=== PATIENT | male | born 1945 | race Caucasian/White ===

== ENCOUNTER 2018-01-04 08:36 | Inpatient (IN) | payer OTHER, MEDICARE ==
[~2018-01-04] VITALS: Ht 180.3 cm; Wt 104.3 kg
[~2018-01-04 08:36] MED LIST: AMLO10 PO; Ambien10 MG PO; BUPR150ERA PO; CALCA500CH PO; DIAZ10 PO; Depakene250 MG PO; ESOM20 PO; FISH1000 PO; GABA300 PO; HYDACE10B PO; HYDPAM50 PO; IMIP25 PO; INS70/30PN; INSULANPEN SC; KETO15TC TOP; LISI20 PO; NASAL SPRAY30 ML; OLAN10 PO; RAME8 PO; TAMS.4ER PO; [UNRECOGNIZED DRUG - OTHER] INH
[2018-01-04 09:21] LABS: BASOPHILS ABSOLUTE AUTO 0.02 K/mm3 (0.00-0.23); BASOPHILS PERCENT AUTO 0 % (0-2); EOSINOPHILS ABSOLUTE AUTO 0.14 K/mm3 (0.00-0.68); EOSINOPHILS PERCENT AUTO 2 % (0-6); Hemoglobin 14.1 g/dL (13.5-17.5); IMMATURE GRAN ABSOLUTE AUTO 0.03 K/mm3 (0.00-0.10); IMMATURE GRAN PERCENT AUTO 0 % (0-1); LYMPHOCYTES ABSOLUTE AUTO 1.38 K/mm3 (0.84-5.20); LYMPHOCYTES PERCENT AUTO 18 % (21-46); MONOCYTES PERCENT AUTO 12 % (4-13); Mean Corpuscular HGB Conc 34.4 g/dL (31.5-36.5); Mean Corpuscular Volume 90 fL (80-100); Mean Platelet Volume 10.4 fL (9.1-12.4); NEUTROPHILS ABSOLUTE AUTO 5.11 K/mm3 (1.96-9.15); NEUTROPHILS PERCENT AUTO 67 % (41-73); Platelet Count 232 K/mm3 (150-400); RDW Coefficient Variation 12.8 % (11.7-14.2); RDW Standard Deviation 42.6 fL (35.1-46.3); Red Blood Cell Count 4.55 M/mm3 (4.30-5.90); White Blood Cell Count 7.58 K/mm3 (4.00-11.30)
[2018-01-04 09:36] LABS: International Normalized Ratio 1.02; Prothrombin Time Results 10.5 Sec (9.7-11.5)
[2018-01-04 09:38] LABS: Alanine Aminotransfer (ALT/SGP 20 U/L (12-78); Albumin, Blood 4.1 g/dL (3.4-5.0); Alk Phos 95 U/L (50-136); Anion Gap 7 mmol/L (6-16); Aspartate Aminotrans (AST/SGOT 21 U/L (12-37); Bilirubin, Total 0.2 mg/dL (0.1-1.0); Blood Urea Nitrogen 21 mg/dL (8-24); Bun/Creatinine Ratio 19.3 (12.0-20.0); CO2, Blood 24 mmol/L (21-32); Calcium, Blood 8.8 mg/dL (8.5-10.1); Chloride, Blood 101 mmol/L (98-108); Creatinine, Blood 1.09 mg/dL (0.60-1.20); Globulin, Blood 4.1 g/dL (2.2-4.0); Glomerular Filtration Rate >60 (60-); Glucose, Blood 208 mg/dL (70-99); Potassium, Blood 3.9 mmol/L (3.5-5.5); Sodium, Blood 132 mmol/L (136-145); Total Protein, Blood 8.2 g/dL (6.4-8.2)
[2018-01-04 11:51] LABS: Source, Urine Clean Catch
[2018-01-04 12:00] LABS: Bilirubin, Urine Neg (Neg); Blood, Urine Neg (Neg); Glucose Qualitative, Urine Neg (Neg); Ketones, Urine Neg (Neg); Leukocyte Esterase, Urine Neg (Neg); Nitrite, Urine Neg (Neg); Protein, Urine Neg (Neg); Specific Gravity, Urine 1.005 (1.003-1.022); Urobilinogen, Urine NORM (Normal)
[2018-01-04 12:10] LABS: Appearance, Urine Clear (Clear); Color, Urine Pale Yellow (P-Yellow)
[2018-01-06 05:36] LABS: Bun/Creatinine Ratio 21.1 (12.0-20.0); Calcium, Blood 9.2 mg/dL (8.5-10.1); Creatinine, Blood 1.28 mg/dL (0.60-1.20); Magnesium, Blood 2.2 mg/dL (1.6-2.4); Potassium, Blood 3.8 mmol/L (3.5-5.5)
[2018-01-06] MEDS ORDERED: ASPI81CH PO (12:08)
[2018-01-06] MEDS ORDERED: CLOP75 PO (12:08)
[2018-01-06] MEDS ORDERED: HUMALOG KW200 UNIT/1 SC (12:10)
[2018-01-06] MEDS ORDERED: METO50ER PO (12:11)
== END 2018-01-06 12:29 | disposition home or self-care (01) | DRG 65 ==
LOC: ER 08:36 → MEDS 10:17
PROVIDERS: Emergency Medicine; Internal Medicine
DX: I63.9 Cerebral infarction, unspecified (principal); N17.9 Acute kidney failure, unspecified; E22.2 Syndrome of inappropriate secretion of antidiuretic hormone; I10 Essential (primary) hypertension; R29.810 Facial weakness; F41.9 Anxiety disorder, unspecified; G47.9 Sleep disorder, unspecified; R25.2 Cramp and spasm; E11.40 Type 2 diabetes mellitus with diabetic neuropathy, unspecified; F43.10 Post-traumatic stress disorder, unspecified; N40.0 Benign prostatic hyperplasia without lower urinary tract symptoms; E66.9 Obesity, unspecified; J44.9 Chronic obstructive pulmonary disease, unspecified; Z68.32 Body mass index [BMI] 32.0-32.9, adult
CPT/HCPCS: 36415; 70450; 71045; 80048; 80053; 81003; 82947; 83735; 85025; 85610; 85730; 92610; 93005; 93010; 93880; 97116; 97162; 97530; 99285-25; G8978; G8979; G8996; G8997; G8998; J1650; J2405

== ENCOUNTER 2019-04-28 10:37 | Inpatient (IN) | payer OTHER, MEDICARE ==
[~2019-04-28] VITALS: Ht 180.3 cm; Wt 106.3 kg
[~2019-04-28 10:37] MED LIST changes: +Aspirin EC81 MG PO; +CLOP75 PO; +HUMALOG KW200 UNIT/1 SC; +METO50ER PO
[2019-04-28 11:00] LABS: BASOPHILS ABSOLUTE AUTO 0.04 K/mm3 (0.00-0.23); BASOPHILS PERCENT AUTO 0 % (0-2); EOSINOPHILS ABSOLUTE AUTO 0.01 K/mm3 (0.00-0.68); EOSINOPHILS PERCENT AUTO 0 % (0-6); Hematocrit 43.8 % (37.0-53.0); Hemoglobin 14.3 g/dL (13.5-17.5); IMMATURE GRAN ABSOLUTE AUTO 0.07 K/mm3 (0.00-0.10); IMMATURE GRAN PERCENT AUTO 1 % (0-1); LYMPHOCYTES PERCENT AUTO 8 % (21-46); MONOCYTES ABSOLUTE AUTO 0.64 K/mm3 (0.16-1.47); MONOCYTES PERCENT AUTO 5 % (4-13); Mean Corpuscular HGB 29.9 pg (26.0-34.0); Mean Corpuscular HGB Conc 32.6 g/dL (31.5-36.5); Mean Corpuscular Volume 92 fL (80-100); Mean Platelet Volume 10.1 fL (9.1-12.4); NEUTROPHILS ABSOLUTE AUTO 10.23 K/mm3 (1.96-9.15); NEUTROPHILS PERCENT AUTO 86 % (41-73); Platelet Count 266 K/mm3 (150-400); RDW Coefficient Variation 14.6 % (11.7-14.2); RDW Standard Deviation 49.1 fL (35.1-46.3); Red Blood Cell Count 4.78 M/mm3 (4.30-5.90); White Blood Cell Count 11.89 K/mm3 (4.00-11.30)
[2019-04-28 11:20] LABS: Alanine Aminotransfer (ALT/SGP 18 U/L (12-78); Alk Phos 91 U/L (50-136); Anion Gap 7 mmol/L (6-16); Aspartate Aminotrans (AST/SGOT 20 U/L (12-37); Bilirubin, Total 0.2 mg/dL (0.1-1.0); Blood Urea Nitrogen 23 mg/dL (8-24); Bun/Creatinine Ratio 25.8 (12.0-20.0); CO2, Blood 24 mmol/L (21-32); Calcium, Blood 9.2 mg/dL (8.5-10.1); Chloride, Blood 104 mmol/L (98-108); Creatinine, Blood 0.89 mg/dL (0.60-1.20); Glomerular Filtration Rate >60 (60-); Glucose, Blood 216 mg/dL (70-99); Potassium, Blood 4.2 mmol/L (3.5-5.5); Sodium, Blood 135 mmol/L (136-145); Troponin I 0.055 ng/mL (0.000-0.040)
[2019-04-28 11:41] LABS: International Normalized Ratio 0.98; Prothrombin Time Results 10.4 Sec (9.7-11.5)
[2019-04-28 12:59] LABS: Source, Urine Clean Catch
[2019-04-28 13:07] LABS: Bilirubin, Urine Neg (Neg); Blood, Urine Neg (Neg); Glucose Qualitative, Urine 4+ (Neg); Ketones, Urine 1+ (Neg); Leukocyte Esterase, Urine Neg (Neg); Nitrite, Urine Neg (Neg); Protein, Urine 2+ (Neg); Urobilinogen, Urine NORM (Normal)
[2019-04-28 13:13] LABS: Appearance, Urine Clear (Clear); Color, Urine Yellow (P-Yellow)
[2019-04-28 13:15] LABS: Bacteria Few /hpf; Red Blood Cells, Urine 0-2 /hpf (0-2); Squamous Epithelial Cells Not Seen /hpf (Few); White Blood Cells, Urine Not Seen /hpf (0-5)
[2019-04-28] MEDS ORDERED: Vitamin D2000 UNIT PO (15:20)
[2019-04-28] MEDS ORDERED: HYDPAM50 PO (15:20)
[2019-04-28] MEDS ORDERED: Bentyl20 MG PO ×2 (15:22→15:23)
[2019-04-28] MEDS ORDERED: GABA400 PO ×2 (15:22)
[2019-04-28] MEDS ORDERED: Nortriptyline H10 MG PO (15:25)
[2019-04-28] MEDS ORDERED: ZOLP5 PO (15:25)
[2019-04-28] MEDS ORDERED: ONDA4 PO (15:26)
[2019-04-28] MEDS ORDERED: Metoclopramide H5 MG PO (15:28)
[2019-04-28] MEDS ORDERED: RISP.5 PO (15:29)
[2019-04-28] MEDS ORDERED: CHLO25B PO (15:29)
[2019-04-28] MEDS ORDERED: Buspirone HCl15 MG PO (15:30)
[2019-04-28] MEDS ORDERED: DESI25 PO (15:31)
[2019-04-28] MEDS ORDERED: RAME8 PO (15:31)
[2019-04-28 16:53] LABS: CHOL/HDL RATIO 4.6; Cholesterol 182 mg/dL (50-200); HDL Cholesterol 40 mg/dL (>39); LDL/HDL RATIO 3.2; Low Density Lipoprotein Chol 127 mg/dL (0-110); Triglycerides 74 mg/dL (30-160); Troponin I 0.246 ng/mL (0.000-0.040); Very Low Density Lipoprot Chol 14 mg/dL (6-32)
--- NOTE | 2019-04-28 19:30 | NUR ---
ASSUMED CARE PT CARE ASSUMED AT APPROXIMATELY 1900. PT ANSWERS ALL ORIENTATION QUESTIONS APPROPRIATELY, BUT IS UNABLE TO TO ANSWER QUESTIONS ACCURATELY ABOUT HIS MEDICAL HISTORY; SUCH ALLERGIES AND CURRENT MEDICATIONS. PT IS ONLY ABLE TO REPORT A FEW OF HIS CURRENT MEDS AND IS UNABLE TO STATE WHEN HE TOOK THEM LAST. PT IS BECOMING IRRITABLE FOR STAFF ATTEMPTING TO CLARIFY AND SOLIDIFY ANSWERS, IT IS APPARENT THAT PT IS BECOMING FRUSTRATED AT NOT BEING ABLE TO ANSWER QUESTIONS SUFFICIENTLY. LUNG SOUNDS CLEAR IN UPPER LOBES, DIMINISHED BASES. PT IS CURRENTLY VERY NAUSEOUS AND HAS ALREADY HAD 300 ML EMESIS OUT. MEDICATED WITH PO REGLAN, WILL MEDICATE WITHIV ZOFRAN. PT REPORTS "EVERYTIME I MOVE MY HEAD, EVERYTHING GETS BLURRY AND I GET NAUSEOUS", ALSO DESCRIBES THIS HAS BEEN HAPPENING OVER THE LAST "SEVERAL WEEKS ON AND OFF". PT CURRENTLY DENIES CP OR DYSPNEA. REPORTS SOME HEADACHE PAIN. WILL ATTEMPT TO CONTROL NAUSEA AND CONTINUE ASSESSMENT. PT ORIENTED TO ROOM AND CALL LIGHT SYSTEM, ENCOURAGED TO CALL FOR ASSISTANCE WITH NEEDS. BED IN LOW POSITION, BED ALARM SET FOR SAFETY.
--- NOTE | 2019-04-29 06:39 | NUR ---
SHIFT SUMMARY PT HAS REMAINED AOX4 THROUHGOUT MUCH OF THE SHIFT, FORGETFUL AT TIMES, BUT REORIENTS EASILY. VSS. SEMI-COOPERATIVE WITH CARE. PT IS IRRITABLE THIS AM BECAUSE OF NPO STATUS AND FRUSTRATED THAT THE EXACT TIME OF HIS TEST IS NOT KNOWN. PT EDUCATED MULTIPLE TIMES ON REASON FOR NPO WELL EXPLAINED PROCESSES FOR PROCEDURES AND HOSPITAL STAY. PT CONTINUES TO STATE THAT "HE WANTS TO GO HOME AND THAT HE WILL BE FINE WITH THE DIZZINESS AND NAUSEA IF HE KEEPS HIS EYES CLOSED". PT ALSO STATES "THIS IS BULL AND I SHOULD BE ABLE TO DO WHATEVER I WANT". CONTINUED TO EDUCATE PATIENT ON SAFETY AND CURRENT ILLNESS AND ENCOURAGED HIM TO STAY AND HAVE TESTING TO FIND ROOT CAUSE OF ILLNESS. PT AGREEABLE AT THIS TIME. PT REPORTS SIGNIFICANT IMPROVEMENT WITH NAUSEA WHEN HE HAS HIS EYES CLOSED AND DOES NOT MAKE QUICK, SUDDEN MOVEMENTS. CONTINUES TO DENY CP. NO OTHER CHANGES NOTED FROM INITIAL ASSESSMENT. WILL CONTINUE TO MONITOR AND REPORT TO ONCOMING SHIFT RN. BED IN LOW POSITION, CALL LIGHT IN REACH. BED ALARM SET FOR SAFETY.
[2019-04-29 06:41] LABS: BASOPHILS ABSOLUTE AUTO 0.01 K/mm3 (0.00-0.23); BASOPHILS PERCENT AUTO 0 % (0-2); EOSINOPHILS ABSOLUTE AUTO 0.01 K/mm3 (0.00-0.68); EOSINOPHILS PERCENT AUTO 0 % (0-6); Hematocrit 40.7 % (37.0-53.0); Hemoglobin 13.8 g/dL (13.5-17.5); IMMATURE GRAN ABSOLUTE AUTO 0.04 K/mm3 (0.00-0.10); IMMATURE GRAN PERCENT AUTO 0 % (0-1); LYMPHOCYTES ABSOLUTE AUTO 1.53 K/mm3 (0.84-5.20); LYMPHOCYTES PERCENT AUTO 14 % (21-46); MONOCYTES ABSOLUTE AUTO 1.16 K/mm3 (0.16-1.47); MONOCYTES PERCENT AUTO 11 % (4-13); Mean Corpuscular HGB 30.2 pg (26.0-34.0); Mean Corpuscular HGB Conc 33.9 g/dL (31.5-36.5); Mean Platelet Volume 10.1 fL (9.1-12.4); NEUTROPHILS ABSOLUTE AUTO 7.93 K/mm3 (1.96-9.15); NEUTROPHILS PERCENT AUTO 74 % (41-73); Platelet Count 279 K/mm3 (150-400); RDW Coefficient Variation 14.6 % (11.7-14.2); RDW Standard Deviation 47.5 fL (35.1-46.3); Red Blood Cell Count 4.57 M/mm3 (4.30-5.90); White Blood Cell Count 10.68 K/mm3 (4.00-11.30)
[2019-04-29 06:44] LABS: Mean Corpuscular Volume 89 fL (80-100)
[2019-04-29 06:58] LABS: Anion Gap 6 mmol/L (6-16); Blood Urea Nitrogen 20 mg/dL (8-24); Bun/Creatinine Ratio 22.4 (12.0-20.0); CO2, Blood 28 mmol/L (21-32); Chloride, Blood 102 mmol/L (98-108); Creatinine, Blood 0.89 mg/dL (0.60-1.20); Glomerular Filtration Rate >60 (60-); Glucose, Blood 144 mg/dL (70-99); Potassium, Blood 3.3 mmol/L (3.5-5.5); Sodium, Blood 136 mmol/L (136-145)
--- NOTE | 2019-04-29 07:30 | NUR ---
ASSUMED CARE: PT RESTING IN BED USING PHONE AT THIS TIME. NO ACUTE NEEDS NOTED.
--- NOTE | 2019-04-29 07:48 | NUR ---
HEPARIN ADJUSTED BY PHARMACY AND DOSE VERIFIED WITH YANIQUE CROOKS. SEE NEW ORDERS
--- NOTE | 2019-04-29 12:50 | NUR ---
DR NOLASCO CALLED TO RELAY THAT SHE PLANS TO TAKE PT TO [facility]. CALLED TO [facility] TO LET THEM KNOW. DR NOLASCO STATES SHE WILL BE HERE TO SEE PT
--- NOTE | 2019-04-29 13:13 | NUR ---
call from the slabbing machine operator to advise us that they are on their way to roller picker the patient for his angiogram.
--- NOTE | 2019-04-29 14:13 | NUR ---
PT TAKEN TO [facility]MER AT 1321
--- NOTE | 2019-04-29 14:24 | NUR ---
right radial artery access site noted on the medial aspect of right wrist. Good distal pulses palpated, and good cap refill noted, spo2 95 % on the right hand, index finger. Pt is awake, appropriate in conversation but forgetful. Vital signs stable.
--- NOTE | 2019-04-29 16:10 | NUR ---
PT DISCHARGED TO [facility] FOR [facility]. REPORT CALLED TO ARY CROOKS. TR BAND STILL IN PLACE. RN AWARE THAT BALOON HAS NOT BEEN DEFLATED. DENIED FURTHER QUESTIONS OR CONCERNS. TRANSPORTED VIA [facility] BY [facility].
== END 2019-04-29 16:35 | disposition short-term general hospital (02) | DRG 281 ==
LOC: ER 10:37 → PCU 16:00
PROVIDERS: Emergency Medicine; ADMIT Internal Medicine
PROC: B2111ZZ Fluoroscopy of Multiple Coronary Arteries using Low Osmolar Contrast (ICD-10-PCS; principal; 2019-04-29)
DX: I21.4 Non-ST elevation (NSTEMI) myocardial infarction (principal); G45.9 Transient cerebral ischemic attack, unspecified; F43.10 Post-traumatic stress disorder, unspecified; N40.0 Benign prostatic hyperplasia without lower urinary tract symptoms; I10 Essential (primary) hypertension; E11.9 Type 2 diabetes mellitus without complications; Z87.891 Personal history of nicotine dependence; Z98.52 Vasectomy status; R29.810 Facial weakness; Z79.02 Long term (current) use of antithrombotics/antiplatelets; E66.9 Obesity, unspecified; J44.9 Chronic obstructive pulmonary disease, unspecified; F03.90 Unspecified dementia, unspecified severity, without behavioral disturbance, psychotic disturbance, mood disturbance, and anxiety; Z79.82 Long term (current) use of aspirin; H81.10 Benign paroxysmal vertigo, unspecified ear; I25.10 Atherosclerotic heart disease of native coronary artery without angina pectoris; Z68.32 Body mass index [BMI] 32.0-32.9, adult
CPT/HCPCS: 36415; 70450; 71045; 76937; 80048; 80053; 80061; 81001; 82947; 83690; 84484; 85025; 85610; 85730; 93005; 93010; 93306; 93454; 96361; 96365-59; 96366; 96375-59; 96376; 99152; 99153; 99285-25; A9270; A9270-GY; C1769; C1894; J1644; J2250; J2405; J3010; J7030; J7120; Q9967

== ENCOUNTER 2019-07-28 08:23 | Emergency (ER) | payer MEDICARE ==
[~2019-07-28] VITALS: Ht 175.3 cm; Wt 86.2 kg
[~2019-07-28 08:23] MED LIST changes: +Bentyl20 MG PO; +Buspirone HCl15 MG PO; +CHLO25B PO; +DESI25 PO; +GABA400 PO; +Metoclopramide H5 MG PO; +Nortriptyline H10 MG PO; +ONDA4 PO; +RISP.5 PO; +Vitamin D2000 UNIT PO; +ZOLP5 PO
[2019-07-28 09:20] LABS: BASOPHILS ABSOLUTE AUTO 0.02 K/mm3 (0.00-0.23); BASOPHILS PERCENT AUTO 0 % (0-2); EOSINOPHILS PERCENT AUTO 0 % (0-6); Hematocrit 42.6 % (37.0-53.0); Hemoglobin 14.6 g/dL (13.5-17.5); IMMATURE GRAN ABSOLUTE AUTO 0.03 K/mm3 (0.00-0.10); IMMATURE GRAN PERCENT AUTO 0 % (0-1); LYMPHOCYTES ABSOLUTE AUTO 1.21 K/mm3 (0.84-5.20); LYMPHOCYTES PERCENT AUTO 13 % (21-46); MONOCYTES ABSOLUTE AUTO 1.09 K/mm3 (0.16-1.47); MONOCYTES PERCENT AUTO 12 % (4-13); Mean Corpuscular HGB 30.1 pg (26.0-34.0); Mean Corpuscular HGB Conc 34.3 g/dL (31.5-36.5); Mean Corpuscular Volume 88 fL (80-100); NEUTROPHILS ABSOLUTE AUTO 6.84 K/mm3 (1.96-9.15); NEUTROPHILS PERCENT AUTO 74 % (41-73); Platelet Count 301 K/mm3 (150-400); RDW Coefficient Variation 12.3 % (11.7-14.2); RDW Standard Deviation 39.9 fL (35.1-46.3); Red Blood Cell Count 4.85 M/mm3 (4.30-5.90); White Blood Cell Count 9.19 K/mm3 (4.00-11.30)
[2019-07-28 09:41] LABS: Alanine Aminotransfer (ALT/SGP 28 U/L (12-78); Albumin, Blood 4.4 g/dL (3.4-5.0); Alk Phos 106 U/L (50-136); Anion Gap 11 mmol/L (6-16); Aspartate Aminotrans (AST/SGOT 33 U/L (12-37); Bilirubin, Total 0.6 mg/dL (0.1-1.0); Blood Urea Nitrogen 33 mg/dL (8-24); Bun/Creatinine Ratio 26.4 (12.0-20.0); CO2, Blood 28 mmol/L (21-32); Calcium, Blood 9.4 mg/dL (8.5-10.1); Chloride, Blood 94 mmol/L (98-108); Creatinine, Blood 1.25 mg/dL (0.60-1.20); Globulin, Blood 4.3 g/dL (2.2-4.0); Glomerular Filtration Rate >60 (60-); Glucose, Blood 295 mg/dL (70-99); Potassium, Blood 3.1 mmol/L (3.5-5.5); Sodium, Blood 133 mmol/L (136-145); Total Protein, Blood 8.7 g/dL (6.4-8.2); Troponin I 0.036 ng/mL (0.000-0.040)
[2019-07-28 10:53] LABS: Source, Urine Clean Catch
[2019-07-28 11:00] LABS: Bilirubin, Urine Neg (Neg); Blood, Urine 1+ (Neg); Glucose Qualitative, Urine 4+ (Neg); Ketones, Urine 3+ (Neg); Leukocyte Esterase, Urine Neg (Neg); Nitrite, Urine Neg (Neg); Protein, Urine 3+ (Neg); Urobilinogen, Urine NORM (Normal); pH, Urine 6.5 (5.0-8.0)
[2019-07-28 11:14] LABS: Appearance, Urine Hazy (Clear); Bacteria Rare /hpf; Color, Urine Yellow (P-Yellow); Red Blood Cells, Urine 0-2 /hpf (0-2); Squamous Epithelial Cells Rare /hpf (Few); White Blood Cells, Urine Not Seen /hpf (0-5)
[2019-07-28 12:28] LABS: U Amphetamine Screen Not Detected; U Barbituate Screen Not Detected; U Benzodiazapine Screen DETECTED; U Buprenorphine Screen Not Detected; U Cannabinoids Screen DETECTED; U Cocaine Screen Not Detected; U Methadone Screen Not Detected; U Methamphetamine Screen Not Detected; U Opiates Screen Not Detected; U Oxycodone Screen Not Detected; U Phencyclidine Screen Not Detected; U Propoxyphene Screen Not Detected
[2019-07-28] MEDS ORDERED: ONDA4ODT MM (14:54)
[2019-07-28] MEDS ORDERED: K-Dur20 MEQ PO (14:54)
== END 2019-07-28 15:04 | disposition home or self-care (01) ==
LOC: ER 08:23
PROVIDERS: Physician Assistant
DX: E87.6 Hypokalemia (principal); E86.0 Dehydration; E11.9 Type 2 diabetes mellitus without complications; I10 Essential (primary) hypertension; Z79.899 Other long term (current) drug therapy; Z79.4 Long term (current) use of insulin; Z87.891 Personal history of nicotine dependence
CPT/HCPCS: 36415; 70450; 80053; 81001; 82140; 83690; 84484; 85025; 87086; 93005; 93010; 96361; 96374; 96375; 99284-25; G0480; J1200; J1630; J2060; J2405; J2550; J7030

== ENCOUNTER 2020-08-04 03:30 | Emergency (ER) | payer OTHER, MEDICARE ==
[~2020-08-04] VITALS: Ht 182.9 cm; Wt 107.5 kg
[~2020-08-04 03:30] MED LIST changes: +FIASP 100100 UNIT/3 SC; -HUMALOG KW200 UNIT/1 SC; +K-Dur20 MEQ PO; +ONDA4ODT MM
[2020-08-04] MEDS ORDERED: NYSTRIT TOP (03:44)
[2020-08-04 04:32] LABS: Source, Urine Clean Catch
[2020-08-04 04:34] LABS: Bilirubin, Urine Neg (Neg); Blood, Urine 1+ (Neg); Glucose Qualitative, Urine 2+ (Neg); Ketones, Urine Neg (Neg); Leukocyte Esterase, Urine Neg (Neg); Nitrite, Urine Neg (Neg); Protein, Urine 3+ (Neg); Urobilinogen, Urine NORM (Normal); pH, Urine 6.5 (5.0-8.0)
[2020-08-04 04:39] LABS: Appearance, Urine Clear (Clear); Color, Urine Yellow (P-Yellow)
[2020-08-04 05:10] LABS: Bacteria Not Seen /hpf; Red Blood Cells, Urine Rare /hpf (0-2); Squamous Epithelial Cells Few /hpf (Few); White Blood Cells, Urine Not Seen /hpf (0-5)
[2020-08-04] MEDS ORDERED: NYAMYC15 G1 TOP (05:26)
[2020-11-21] MEDS ORDERED: ALBU90OI INH (02:00)
== END 2020-08-04 05:59 | disposition home or self-care (01) ==
LOC: ER 03:30
PROVIDERS: Emergency Medicine
DX: B35.6 Tinea cruris (principal); Z79.4 Long term (current) use of insulin; Z79.02 Long term (current) use of antithrombotics/antiplatelets; Z79.82 Long term (current) use of aspirin; Z91.030 Bee allergy status; Z88.8 Allergy status to other drugs, medicaments and biological substances
CPT/HCPCS: 51701; 81001; 99283-25; A9270

== ENCOUNTER 2020-10-20 12:49 | Emergency (ER) | payer OTHER, MEDICARE ==
[~2020-10-20] VITALS: Ht 180.3 cm; Wt 104.3 kg
[~2020-10-20 12:49] MED LIST changes: +NYAMYC15 G1 TOP; +NYSTRIT TOP
[2020-10-20 13:11] LABS: BASOPHILS ABSOLUTE AUTO 0.01 K/mm3 (0.00-0.23); BASOPHILS PERCENT AUTO 0 % (0-2); EOSINOPHILS ABSOLUTE AUTO 0.09 K/mm3 (0.00-0.68); EOSINOPHILS PERCENT AUTO 1 % (0-6); Hematocrit 39.7 % (37.0-53.0); Hemoglobin 13.2 g/dL (13.5-17.5); IMMATURE GRAN ABSOLUTE AUTO 0.03 K/mm3 (0.00-0.10); IMMATURE GRAN PERCENT AUTO 0 % (0-1); LYMPHOCYTES PERCENT AUTO 18 % (21-46); MONOCYTES ABSOLUTE AUTO 1.02 K/mm3 (0.16-1.47); MONOCYTES PERCENT AUTO 13 % (4-13); Mean Corpuscular HGB 30.4 pg (26.0-34.0); Mean Corpuscular HGB Conc 33.2 g/dL (31.5-36.5); Mean Corpuscular Volume 92 fL (80-100); Mean Platelet Volume 10.6 fL (9.1-12.4); NEUTROPHILS ABSOLUTE AUTO 5.05 K/mm3 (1.96-9.15); NEUTROPHILS PERCENT AUTO 67 % (41-73); Platelet Count 271 K/mm3 (150-400); RDW Standard Deviation 43.5 fL (35.1-46.3); Red Blood Cell Count 4.34 M/mm3 (4.30-5.90)
[2020-10-20 13:42] LABS: Alanine Aminotransfer (ALT/SGP 18 U/L (12-78); Albumin, Blood 3.7 g/dL (3.4-5.0); Albumin/Globulin Ratio 0.9 (0.8-1.8); Alk Phos 92 U/L (50-136); Anion Gap 4 mmol/L (6-16); Aspartate Aminotrans (AST/SGOT 16 U/L (12-37); Bilirubin, Total 0.3 mg/dL (0.1-1.0); Blood Urea Nitrogen 20 mg/dL (8-24); CO2, Blood 26 mmol/L (21-32); Calcium, Blood 8.7 mg/dL (8.5-10.1); Chloride, Blood 104 mmol/L (98-108); Creatinine, Blood 1.05 mg/dL (0.60-1.20); Globulin, Blood 3.9 g/dL (2.2-4.0); Glomerular Filtration Rate >60 (60-); Glucose, Blood 145 mg/dL (70-99); Sodium, Blood 134 mmol/L (136-145); Total Protein, Blood 7.6 g/dL (6.4-8.2); Troponin I <0.015 ng/mL (0.000-0.040)
[2020-10-20] MEDS ORDERED: AZIT250 PO ×2 (14:33→14:35)
[2020-11-21] MEDS ORDERED: ALBU90OI INH (02:00)
== END 2020-10-20 15:17 | disposition home or self-care (01) ==
LOC: ER 12:49
PROVIDERS: Emergency Medicine
DX: J44.1 Chronic obstructive pulmonary disease with (acute) exacerbation (principal); R04.2 Hemoptysis; E11.9 Type 2 diabetes mellitus without complications; I10 Essential (primary) hypertension; Z88.8 Allergy status to other drugs, medicaments and biological substances; Z79.899 Other long term (current) drug therapy; Z79.4 Long term (current) use of insulin
CPT/HCPCS: 71046; 80053; 84484; 85025; 93005; 93010; 99285-25; A9270

== ENCOUNTER 2020-11-16 23:01 | Inpatient (IN) | payer OTHER, MEDICARE ==
[~2020-11-16] VITALS: Ht 182.9 cm; Wt 98.6 kg
[~2020-11-16 23:01] MED LIST changes: +AZIT250 PO; +Lopressor 50 mg50 MG PO; -METO50ER PO
[2020-11-16 23:36] LABS: BASOPHILS ABSOLUTE AUTO 0.03 K/mm3 (0.00-0.23); BASOPHILS PERCENT AUTO 0 % (0-2); EOSINOPHILS PERCENT AUTO 0 % (0-6); Hemoglobin 14.4 g/dL (13.5-17.5); IMMATURE GRAN ABSOLUTE AUTO 0.13 K/mm3 (0.00-0.10); IMMATURE GRAN PERCENT AUTO 1 % (0-1); LYMPHOCYTES ABSOLUTE AUTO 0.67 K/mm3 (0.84-5.20); LYMPHOCYTES PERCENT AUTO 4 % (21-46); MONOCYTES ABSOLUTE AUTO 1.33 K/mm3 (0.16-1.47); MONOCYTES PERCENT AUTO 8 % (4-13); Mean Corpuscular HGB 30.6 pg (26.0-34.0); Mean Corpuscular HGB Conc 32.7 g/dL (31.5-36.5); Mean Corpuscular Volume 94 fL (80-100); Mean Platelet Volume 11.3 fL (9.1-12.4); NEUTROPHILS PERCENT AUTO 87 % (41-73); Platelet Count 267 K/mm3 (150-400); RDW Coefficient Variation 13.2 % (11.7-14.2); RDW Standard Deviation 45.7 fL (35.1-46.3); White Blood Cell Count 16.46 K/mm3 (4.00-11.30)
[2020-11-17 00:13] LABS: Bun/Creatinine Ratio 16.7 (12.0-20.0); Creatinine, Blood 2.75 mg/dL (0.60-1.20); Potassium, Blood 5.9 mmol/L (3.5-5.5)
[2020-11-17 00:31] LABS: Creatine Kinase MB 37.8 ng/mL (0.0-3.6); Creatine Kinase MB Index 0.5 (0.0-4.0)
[2020-11-17 03:04] LABS: Source, Urine Clean Catch
[2020-11-17 03:08] LABS: Appearance, Urine Hazy (Clear); Bilirubin, Urine Neg (Neg); Blood, Urine 5+ (Neg); Color, Urine Amber (P-Yellow); Glucose Qualitative, Urine 4+ (Neg); Ketones, Urine 1+ (Neg); Leukocyte Esterase, Urine Neg (Neg); Nitrite, Urine Neg (Neg); Protein, Urine 3+ (Neg); Specific Gravity, Urine 1.015 (1.003-1.022); Urobilinogen, Urine NORM (Normal)
[2020-11-17 03:13] LABS: Amorphous Heavy (0-Heavy); Bacteria Few /hpf; Red Blood Cells, Urine 0-2 /hpf (0-2); Squamous Epithelial Cells Not Seen /hpf (Few)
[2020-11-17 05:31] LABS: BASOPHILS ABSOLUTE AUTO 0.01 K/mm3 (0.00-0.23); BASOPHILS PERCENT AUTO 0 % (0-2); EOSINOPHILS PERCENT AUTO 0 % (0-6); Hematocrit 43.3 % (37.0-53.0); Hemoglobin 14.3 g/dL (13.5-17.5); IMMATURE GRAN PERCENT AUTO 1 % (0-1); LYMPHOCYTES ABSOLUTE AUTO 0.71 K/mm3 (0.84-5.20); LYMPHOCYTES PERCENT AUTO 5 % (21-46); MONOCYTES ABSOLUTE AUTO 1.75 K/mm3 (0.16-1.47); MONOCYTES PERCENT AUTO 12 % (4-13); Mean Corpuscular HGB 30.4 pg (26.0-34.0); Mean Corpuscular Volume 92 fL (80-100); NEUTROPHILS ABSOLUTE AUTO 12.31 K/mm3 (1.96-9.15); NEUTROPHILS PERCENT AUTO 83 % (41-73); Platelet Count 243 K/mm3 (150-400); RDW Coefficient Variation 13.2 % (11.7-14.2); RDW Standard Deviation 45.1 fL (35.1-46.3); White Blood Cell Count 14.88 K/mm3 (4.00-11.30)
[2020-11-17 05:54] LABS: Albumin, Blood 3.7 g/dL (3.4-5.0); Bilirubin, Total 0.5 mg/dL (0.1-1.0); Bun/Creatinine Ratio 21.3 (12.0-20.0); Calcium, Blood 8.5 mg/dL (8.5-10.1); Creatinine, Blood 2.25 mg/dL (0.60-1.20); Globulin, Blood 3.8 g/dL (2.2-4.0); Total Protein, Blood 7.5 g/dL (6.4-8.2)
--- NOTE | 2020-11-17 06:14 | NUR ---
SHIFT SUMMARY PT NEW ED ADMIT THIS EVENING. A/O X 4. SLOW TO RESPOND. PT SLEPT OFF AND ON. PAINFUL FROM SUNBURNS. MEDICATED X 1 W/ TYLENOL. SUNBURNS TO FACE, CHEST, AND THIGHS. PT ALSO COMPLAINING OF HEART BURN. NEW ORDER FOR GI COCKTAIL, GIVEN WITH GOOD EFFECT. PT IS VERY WEAK. HAVING A DIFFICULT TIME EVEN LIFTING HIS LEGS IN THE BED. PT HAS A DIFFICULT TIME STARTING HIS STREAM AT TIMES WITH URINATION. PT STATES THIS IS BASELINE. HTN THIS EVENING. APRESOLINE GIVEN PER ORDERS WITH IMPROVEMENT. TELEMETRY READING SR IN THE 80'S. PT RESTING AT THIS TIME. WILL CONTINUE TO MONITOR.
[2020-11-17 16:36] LABS: Source, Urine Catheter
[2020-11-17 16:41] LABS: Bilirubin, Urine Neg (Neg); Blood, Urine 5+ (Neg); Color, Urine Amber (P-Yellow); Glucose Qualitative, Urine 4+ (Neg); Ketones, Urine Neg (Neg); Leukocyte Esterase, Urine Neg (Neg); Nitrite, Urine Neg (Neg); Protein, Urine 3+ (Neg); Specific Gravity, Urine 1.015 (1.003-1.022); Urobilinogen, Urine NORM (Normal)
[2020-11-17 17:02] LABS: Appearance, Urine Hazy (Clear)
[2020-11-17 17:03] LABS: Amorphous Light (0-Heavy); Bacteria Few /hpf; Squamous Epithelial Cells Few /hpf (Few); White Blood Cells, Urine 0-2 /hpf (0-5)
[2020-11-17 17:04] LABS: Granular Casts 0-2 /lpf (0)
--- NOTE | 2020-11-17 19:12 | NUR ---
SHIFT SUMMARY PT IS AOX4. PT C/O PAIN IN HIS COCCYX. PT MEDICATED X1 WITH TYLENOL. PT DENIES N/V, SOB. PT IS 2 MAX ASSIST TO BEDSIDE. PT APPETITE IS GOOD. THIS RN PUT LOTION ON PT'S BOTTOM TO ASSIST WITH PAIN RELIEF. PT STATED THIS HELPED. PLAN IS FOR REHYDRATION AND MONITORING KIDNEY FUNCTION AND MUSCULOSKELETAL STATUS. PT DID NOT HAVE VISITORS THIS TERRY. PT IS IN BED, CALL LIGHT IN REACH, BED IN LOW POSITION.
--- NOTE | 2020-11-18 04:56 | NUR ---
SHIFT SUMMARY NO ACUTE CHANGES THIS EVENING. PT REMAINS WEAK, REPORTING THAT HE DOES NOT HAVE THE STRENGTH TO LIFT HIS LEGS UP IN THE BED. PT'S BOTTOM RED FROM SITTING IN LAWN CHAIR FOR EXTENDED PERIOD OF TIME. REPOSITIONED NEEDED. LOTION APPLIED TO BOTTOM FOR COMFORT. PT ALSO REPORTED PAIN TO BOTTOM, MEDICATED X 2 W/ TYLENOL WITH GOOD EFFECT. VILLA CATHETER PATENT AND DRAINING DARKER NAIN URINE. PT CONTINUES TO HAVE SOME HTN. PRN HYDRALAZINE GIVEN. OTHERWISE VSS. PT REPORTS FEELING HOT WITH SUNBURN. FAN PROVIDED. OTHERWISE PT HAD AN UNEVENTFUL NIGHT. WILL CONTINUE TO MONITOR.
[2020-11-18 05:29] LABS: BASOPHILS ABSOLUTE AUTO 0.06 K/mm3 (0.00-0.23); BASOPHILS PERCENT AUTO 0 % (0-2); Hematocrit 39.4 % (37.0-53.0); Hemoglobin 13.4 g/dL (13.5-17.5); LYMPHOCYTES PERCENT AUTO 3 % (21-46); MONOCYTES PERCENT AUTO 12 % (4-13); Mean Corpuscular HGB 30.9 pg (26.0-34.0); Mean Corpuscular Volume 91 fL (80-100); Mean Platelet Volume 11.3 fL (9.1-12.4); Platelet Count 196 K/mm3 (150-400); RDW Standard Deviation 43.7 fL (35.1-46.3); Red Blood Cell Count 4.34 M/mm3 (4.30-5.90); White Blood Cell Count 21.28 K/mm3 (4.00-11.30)
[2020-11-18 05:31] LABS: EOSINOPHILS PERCENT AUTO 0 % (0-6); IMMATURE GRAN ABSOLUTE AUTO 0.13 K/mm3 (0.00-0.10); IMMATURE GRAN PERCENT AUTO 1 % (0-1); NEUTROPHILS ABSOLUTE AUTO 17.79 K/mm3 (1.96-9.15); NEUTROPHILS PERCENT AUTO 84 % (41-73)
[2020-11-18 06:17] LABS: Albumin, Blood 3.2 g/dL (3.4-5.0); Albumin/Globulin Ratio 0.8 (0.8-1.8); Bilirubin, Total 1.1 mg/dL (0.1-1.0); Bun/Creatinine Ratio 27.7 (12.0-20.0); Calcium, Blood 8.7 mg/dL (8.5-10.1); Creatinine, Blood 1.37 mg/dL (0.60-1.20); Globulin, Blood 3.9 g/dL (2.2-4.0); Total Protein, Blood 7.1 g/dL (6.4-8.2)
--- NOTE | 2020-11-18 16:45 | NUR ---
Received report from med floor RN. Patient transfrred to ICU 13 via gurney and he was a 4 person slide transfer. He was stiff moving but able to assist with turning. He was alert and oriented and is able to communicate his needs. Got him ice water and blanket. Temp. 99.7 on arrival. He has Field start IV in LAC, SL'd. Hooked up to monitor and started VS which were stable.
--- NOTE | 2020-11-18 16:54 | NUR ---
TRANSFER NOTE THIS RN GAVE REPORT TO FREDRICK GOODWIN RN IN ICU. PT IS AOX4. PT BELONGINGS GATHERED. PT TRANSFERRED VIA BED BY THIS RN AND MOTOR VEHICLE EMISSIONS INSPECTOR. PT IS NOW IN ICU-13 AND AOX4.
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
--- NOTE | 2020-11-18 19:11 | NUR ---
CARE ASSUMED REPORT RECIEVED FROM FREDRICK BROTHERS-DANTROLENE HAS FINISHED INFUSING AND PT'S LEFT A/C 18 G PIV IS CURRENTLY S.L. DOES NOT APEAR RN CHARTED ON MED GIVEN-WILL CHART GIVEN BY WESLEY RN-WHOM CLEARLY STATED DURING REPOT DANTROLENE WAS GIVEN AND DONE X 1, AND BAG IS AT BEDSIDE EMPTY. PT IS CURRENTLY RESTING, WILL CONTINUE ASSESSMENT AND CARE.
--- NOTE | 2020-11-18 20:53 | NUR ---
md notified-Dr. Main. pt n/v-early 1 x dose zofran ordered and given. CONTINUE TO ASSESS.
--- NOTE | 2020-11-18 21:50 | NUR ---
NOTIFIED-PT COUGHING WITH EACH SIP OF WATER, AND SOUNDS INCREASING "WET" AND CONGESTED. ORDER TO npo.
--- NOTE | 2020-11-18 22:01 | NUR ---
ASSESS PT FEELS HOT-ICE WASH CLOTHS APPLIED TO HEAD AND NECK. TEMP 98.1 MIMI, BUT SKIN FEELS WARM, ROOM TEMP DECREASED AND FAN PLACE FOR PT COMFORT. TURN PT TO LEFT SIDE, SATS 90% ON RA. CONTINUE TO ASSESS AND CARE.
--- NOTE | 2020-11-18 23:03 | NUR ---
ASSESS PT CONTINUES TO SOUND WET AND CONGESTED, NOW ON 4 L N/C. CALLED RT TO ROOM TO EVAL. RT CALLED MD FOR CPAP ORDER. PT PLACED ON CPAP AT THIS TIME.
--- NOTE | 2020-11-19 00:05 | NUR ---
ASSESS PT ON CPAP, RESTING. VITALS CURRENTLY STABLE. BS: DECREASED > ON LEFT. PT SOUNDS "VERY WET",-PLACING A CALL TO HOSPITALIST DR. PINA NOW.
[2020-11-19 00:53] LABS: PCO2 Arterial 37.5 mmHg (35-45); PO2 Arterial 54.4 mmHg (80-100); pH Blood Arterial 7.45 (7.35-7.45)
--- NOTE | 2020-11-19 00:59 | NUR ---
UPDATE-CXR DONE-NEW MD ORDERS IN-SEE ORDERS.
--- NOTE | 2020-11-19 03:25 | NUR ---
ASSESS LABS SENT-PT WITH IMPROVED SATS NOW 99% ON 60% BIPAP, BS:AIRATION IMPROVED, RHONCHI BILAT UPPER AIRWAYS. VILLA WITH INCREASED CLEAR PALE OUTPUT POST 60MG LASIX GIVEN PER MD ORDERS. CONTINUE TO ASSESS
[2020-11-19 03:32] LABS: BASOPHILS ABSOLUTE AUTO 0.05 K/mm3 (0.00-0.23); BASOPHILS PERCENT AUTO 0 % (0-2); EOSINOPHILS PERCENT AUTO 0 % (0-6); Hematocrit 39.5 % (37.0-53.0); Hemoglobin 13.2 g/dL (13.5-17.5); IMMATURE GRAN ABSOLUTE AUTO 0.14 K/mm3 (0.00-0.10); IMMATURE GRAN PERCENT AUTO 1 % (0-1); LYMPHOCYTES ABSOLUTE AUTO 0.78 K/mm3 (0.84-5.20); LYMPHOCYTES PERCENT AUTO 4 % (21-46); MONOCYTES ABSOLUTE AUTO 2.22 K/mm3 (0.16-1.47); MONOCYTES PERCENT AUTO 12 % (4-13); Mean Corpuscular HGB 31.1 pg (26.0-34.0); Mean Corpuscular HGB Conc 33.4 g/dL (31.5-36.5); Mean Corpuscular Volume 93 fL (80-100); Mean Platelet Volume 11.3 fL (9.1-12.4); NEUTROPHILS ABSOLUTE AUTO 15.86 K/mm3 (1.96-9.15); NEUTROPHILS PERCENT AUTO 83 % (41-73); Platelet Count 197 K/mm3 (150-400); RDW Coefficient Variation 13.3 % (11.7-14.2); RDW Standard Deviation 45.1 fL (35.1-46.3); Red Blood Cell Count 4.25 M/mm3 (4.30-5.90); White Blood Cell Count 19.05 K/mm3 (4.00-11.30)
[2020-11-19 04:23] LABS: Bun/Creatinine Ratio 25.7 (12.0-20.0); Calcium, Blood 8.7 mg/dL (8.5-10.1); Creatinine, Blood 1.4 mg/dL (0.60-1.20); Potassium, Blood 4.8 mmol/L (3.5-5.5)
--- NOTE | 2020-11-19 06:36 | NUR ---
END OF SHIFT NOTE PT ALEART/FOLLOWS. ABLE TO CHANGE FROM BIPAP TO CPAP THIS AM-SEE RT NOTE. REMOVED CPAP AND PLACED ON 4 L N/C FOR 30 MIN. PT DID DESAT TO 86% AND REQUIRED TO BE RETURNED TO CPAP NOW, CURRENTLY 96% ON CPAP12 50%. PT REMAINS NPO FOR ASPIRATION RISK. TOTAL VILLA OUTPUT OVERNIGHT 2150ML (900ML WAS POST LASIX). PIV'S CURRENTLY S.L. CONTINUE ASSESSMENTS AND CARE TILL REPORT OFF TO DAYSHIFT RN.
--- NOTE | 2020-11-19 08:00 | NUR ---
ASSUMED PT CARE REPORT AND BEDSIDE ROUNDS WITH RAUL RN AT 0715, ASSUMED PT CARE. PT ALERT TO SELF AND ABLE TO FOLLOW SIMPLE DIRECTIONS. USES CALL LIGHT APPROPRIATELY. PT CURRENTLY ON CPAP 12/40%FiO2 SATS >90%. LUNG SOUNDS VERY COARSE AND DIMINISHED. PT COUGH VERY WEAK AND PT UNABLE TO CLEAR SECRETIONS. ABD SOFT AND NONTENDER. BOWEL SOUNDS HYPOACTIVE. VILLA PATENT AND DRAINING. 20G TO LEFT AC, SITE WNL, DRESSING C/D/I. 20G TO RIGHT HAND, SITE WNL, DRESSING C/D/I. BOTH SALINE LOCKED. PT ABLE TO MOVE EXTREMITIES WEAKLY. NEEDS COMPLETE ASSISTANCE WITH REPOSITIONING. PT CURRENTLY NPO DUE TO DIFF BREATHING AND DECLINE IN RESP STATUS. WILL RE-EVALUATE TODAY. PULSES EQUAL AND STRONG. SBP WNL. NSR 70S ON MONITOR. FAN AT BEDSIDE FOR PT COMFORT. SEE FULL SHIFT ASSESSMENT.
--- NOTE | 2020-11-19 09:25 | NUR ---
DR SANCHEZ TO ROOM FOR EVAL AND ASSESSMENT. PT ON 4L O2 PER NC, ABLE TO TAKE MEDS CRUSHED IN APPLE SAUCE. PLAN TO STATUS CHANGE TO PCU.
--- NOTE | 2020-11-19 10:55 | NUR ---
ROOM ASSIGNMENT RECEIVED.
--- NOTE | 2020-11-19 11:22 | NUR ---
REPORT TO KAYLEE CROOKS IN PCU.
--- NOTE | 2020-11-19 11:27 | NUR ---
PT TO PCU 2.
--- NOTE | 2020-11-19 18:36 | NUR ---
SHIFT SUMMARY RECIEVED REPORT FROM DAKSHA MAYES IN ICU. PT TO ROOM AT APPROX 1124 VIA BED, 4 PERSON TRANSFER ASSIST WITH SLIDER SHEET. PT ORIENTED TO ROOM AND CALL LIGHT. PT A&Ox3; KNOWS PERSON, PLACE, EVENT; STATES ITS November. PT ANXIOUS AT TIMES, TREMORS NOTED. PT SLOW TO RESPONDS AND FORGETFUL, ASKING QUESTIONS REPEATATIVLY. PT HELD NPO DUE TO PENDING SWALLOW EVAL, PT HAS WEAK COUGH AND UNABLE TO CLEAR AIRWAY; SUCTION SET UP AT BEDSIDE, ORAL CARE Q4 COMPLETED. LS COARSE T/O, DIM TO BASES. PT ON 2L O2 VIA NC, UPON TRANSFER TO ROOM, TITRATED TO ROOM RA. PT DENIES PAIN, CHEST PAIN, SOB, NAUSEA AND DIZZINESS. VSS. PT RECEIVING IV DANTRIUM AND ATIVAN SCHEDULED. NO OTHER ACUTE CHANGES NOTED DURING SHIFT. WILL CONTINUE TO MONITOR UNTIL REPORT GIVEN TO ONCOMING RN.
[2020-11-20 04:15] LABS: BASOPHILS ABSOLUTE AUTO 0.02 K/mm3 (0.00-0.23); BASOPHILS PERCENT AUTO 0 % (0-2); EOSINOPHILS ABSOLUTE AUTO 0.01 K/mm3 (0.00-0.68); EOSINOPHILS PERCENT AUTO 0 % (0-6); Hematocrit 40.5 % (37.0-53.0); Hemoglobin 13.4 g/dL (13.5-17.5); IMMATURE GRAN ABSOLUTE AUTO 0.07 K/mm3 (0.00-0.10); IMMATURE GRAN PERCENT AUTO 1 % (0-1); LYMPHOCYTES ABSOLUTE AUTO 1.03 K/mm3 (0.84-5.20); LYMPHOCYTES PERCENT AUTO 8 % (21-46); MONOCYTES ABSOLUTE AUTO 1.43 K/mm3 (0.16-1.47); MONOCYTES PERCENT AUTO 11 % (4-13); Mean Corpuscular HGB 30.7 pg (26.0-34.0); Mean Corpuscular HGB Conc 33.1 g/dL (31.5-36.5); Mean Corpuscular Volume 93 fL (80-100); Mean Platelet Volume 11.5 fL (9.1-12.4); NEUTROPHILS ABSOLUTE AUTO 10.22 K/mm3 (1.96-9.15); NEUTROPHILS PERCENT AUTO 80 % (41-73); Platelet Count 224 K/mm3 (150-400); RDW Coefficient Variation 12.9 % (11.7-14.2); RDW Standard Deviation 43.9 fL (35.1-46.3); Red Blood Cell Count 4.36 M/mm3 (4.30-5.90); White Blood Cell Count 12.78 K/mm3 (4.00-11.30)
[2020-11-20 04:50] LABS: Alanine Aminotransfer (ALT/SGP 124 U/L (12-78); Albumin, Blood 2.7 g/dL (3.4-5.0); Albumin/Globulin Ratio 0.6 (0.8-1.8); Alk Phos 65 U/L (50-136); Anion Gap 8 mmol/L (6-16); Aspartate Aminotrans (AST/SGOT 167 U/L (12-37); Bilirubin, Total 0.9 mg/dL (0.1-1.0); Blood Urea Nitrogen 39 mg/dL (8-24); Bun/Creatinine Ratio 31.7 (12.0-20.0); CO2, Blood 29 mmol/L (21-32); Calcium, Blood 8.8 mg/dL (8.5-10.1); Chloride, Blood 96 mmol/L (98-108); Creatinine, Blood 1.23 mg/dL (0.60-1.20); Globulin, Blood 4.6 g/dL (2.2-4.0); Glomerular Filtration Rate >60 (60-); Glucose, Blood 233 mg/dL (70-99); Sodium, Blood 133 mmol/L (136-145); Total Protein, Blood 7.3 g/dL (6.4-8.2)
[2020-11-20 04:54] LABS: CPK Creatine Kinase 3400 U/L (39-308)
--- NOTE | 2020-11-20 07:38 | NUR ---
SHIFT SUMMARY PATIENT IS ALERT AND ORIENTED X3 AT BEGINNING OF SHIFT, GRADUALLY BECAME MORE CONFUSED THROUGH THE NIGHT YELLING OUT AT TIMES. PATIENT LUNG SOUNDS BECAME COARSE AROUND 2300 LAST NIGHT AND OXYGEN REQUIREMENTS INCREASED TO 6L VIA NC FROM RA. CALLED HOSPITALIST AND LASIX GIVEN. 02 SATS IMPROVED TO 2-3L VIA NC, LUNGS STILL COARSE. PATIENT STARTES TO DESATURATE AGAIN AND NEEDED 10L VIA HIGH FLOW NC TO MAINTAIN 02 SATS AT 91%. GOOD VILLA OUTPUT. PATIENT CONVERTED TO A.FIB @140s @APPROX 0140, SEVERAL METOPROLOL PUSHES GIVEN PER HOSPITALIST ORDERS, PATIENT CURRENTLY A.FIB @100. PT NPO, PO MEDS HELD. BLOOD PRESSURES STABLE. AM ATIVAN HELD DUE TO PATIENT SLEEPING AND RESPERATORY STATUS. Q4 ORAL CARE PROVIDED, Q2 HOUR TURNING. CALL LIGHT IN REACH.
--- NOTE | 2020-11-20 19:58 | NUR ---
SHIFT SUMMARY ASSUMED CARE OF PT AT APPROX 0700; PT APPEARS TO BE SLEEPING. PT ALERT, ORIENTED TO SELF ONLY, IRRITABLE AND ANGRY WITH STAFF; STATES THAT WE ARE NOT ABLE TO DO PATIENT CARE UNTIL HE HAS WATER. PT EDCUATED ON NEED FOR NPO STATUS DUE TO ASP RISK, ONCE THE ST SEES HIM. PT MEDICATED PER EMAR WITH ATIVAN, PT MENTATION IMPROVED, ORIENTED x3 THIS AFTERNOON, PLEASANT AND COOPERTIVE WITH CARE. PT SOB WITH EXERTION; STARTED THIS AM AT 10L O2 VIA NC, TITRATED TO 2L O2 VIA NC DURING SHIFT. PT CONTINUES TO ATTEMPTED COUGH. Q2 ORAL CARE T/O SHIFT. PT DENIES PAIN, NAUSEA AND DIZZINESS T/O SHIFT. HR ELEVATED T/O SHIFT, MEDCIATED WITH SCHEDULE PO AND IV MEDCICATIONS. BP STALBE. PT RECIEVING IV LASIX, LOPRESSOR AND ATIVAN T/O SHIFT. PT STARTED ON CLINIMIX. CGB AND INSULING CHANGED TO Q6. OTHER VSS. NO OTHER ACUTE CHANGES NOTED DURING SHIFT. REPORT GIVEN TO ONCOMING RN.
[2020-11-21] MEDS ORDERED: EZETIMIBE10 M6 PO (01:50)
[2020-11-21] MEDS ORDERED: ALBU2.5V5 INH (02:00)
[2020-11-21] MEDS ORDERED: CARB200 PO (02:02)
[2020-11-21] MEDS ORDERED: CARBOXYMETHYLCE15 ML BOTHEYES (02:02)
[2020-11-21] MEDS ORDERED: LIDO5TO TOP (02:07)
[2020-11-21] MEDS ORDERED: LOSA50 PO (02:08)
--- NOTE | 2020-11-21 03:56 | NUR ---
SHIFT SUMMARY PATIENT IS ALERT AND ORIENTED X2-3. FORGETFULL. 02 SATS >90% ON RA. PT USING FLUTTER VALVE. Q2 HOUR REPOSITIONING AND ORAL CARE. A.FIB/FLUTTER @110s-120, Q6 LOPRESSOR PUSHES. Q6 CBG. PATIENT BECOMES AGITATED/ANXIOUS AT TIMES, SCHEDULED ATIVAN GIVEN. NPO DUE TO ASPIRATION RISK. VSS, NO ACUTE CHANGES. CALL LIGHT IN REACH.
[2020-11-21 04:30] LABS: BASOPHILS ABSOLUTE AUTO 0.03 K/mm3 (0.00-0.23); BASOPHILS PERCENT AUTO 0 % (0-2); EOSINOPHILS ABSOLUTE AUTO 0.04 K/mm3 (0.00-0.68); EOSINOPHILS PERCENT AUTO 0 % (0-6); Hematocrit 42.2 % (37.0-53.0); Hemoglobin 13.8 g/dL (13.5-17.5); IMMATURE GRAN PERCENT AUTO 1 % (0-1); LYMPHOCYTES ABSOLUTE AUTO 1.33 K/mm3 (0.84-5.20); LYMPHOCYTES PERCENT AUTO 12 % (21-46); MONOCYTES ABSOLUTE AUTO 1.49 K/mm3 (0.16-1.47); MONOCYTES PERCENT AUTO 14 % (4-13); Mean Corpuscular HGB Conc 32.7 g/dL (31.5-36.5); Mean Corpuscular Volume 92 fL (80-100); Mean Platelet Volume 11.5 fL (9.1-12.4); NEUTROPHILS ABSOLUTE AUTO 7.78 K/mm3 (1.96-9.15); NEUTROPHILS PERCENT AUTO 72 % (41-73); Platelet Count 226 K/mm3 (150-400); RDW Coefficient Variation 12.5 % (11.7-14.2); RDW Standard Deviation 42.3 fL (35.1-46.3); White Blood Cell Count 10.77 K/mm3 (4.00-11.30)
[2020-11-21 04:50] LABS: Albumin, Blood 2.4 g/dL (3.4-5.0); Albumin/Globulin Ratio 0.5 (0.8-1.8); Bilirubin, Total 0.9 mg/dL (0.1-1.0); Bun/Creatinine Ratio 42.5 (12.0-20.0); Calcium, Blood 8.6 mg/dL (8.5-10.1); Creatinine, Blood 1.27 mg/dL (0.60-1.20); Globulin, Blood 4.6 g/dL (2.2-4.0); Magnesium, Blood 2.2 mg/dL (1.6-2.4); Phosphorus, Blood 3.2 mg/dL (2.5-4.9); Potassium, Blood 3.3 mmol/L (3.5-5.5)
--- NOTE | 2020-11-21 10:06 | NUR ---
AM NOTE PT A&Ox3, PLEASANT AND COOPERATIVE WITH CARE. FORGETFUL, INSISTING ON FOOD AND WATER THIS AM; EDUCATED PT ON NPO STATUS AND NEED TO SEE ST. PT REPORTS COSME, DENIES NEEDS FOR MEDICATION AT THIS TIME. PT DENIES SOB, SPO2 >90% ON RA, LS DIM, BREATHING EVEN AND UNLABORED. PT DENIES NAUSEA AND DIZZINESS. VSS, TELE AFLUTTER/AFIB THIS AM. NO OTHER ACUTE CHANGES NOTED DURING SHIFT. WILL CONTINUE TO MONITOR UNTIL REPORT GIVEN TO ONCOMING RN.
--- NOTE | 2020-11-21 15:20 | NUR ---
PT DEMANDING IV POTASSIUM BE DISCONNECTED. THIS RN EXPLAINED TO PT THAT THE POTASSIUM COULD BE DILUTED WITH A CONCURENT INFUSION OF NORMAL SALINE TO DECREASE DISCOMFORT AT THE INFUSION SITE. PT REFUSED. THIS RN DISCONNECTED THE POTASSIUM INFUSION AND INFORMED PRIMARY RN ELO OF THE SITUATION.
--- NOTE | 2020-11-21 19:14 | NUR ---
SHIFT SUMMARY NO ACUTE CHANGES NOTED DURING SHIFT. PT REQUESTING IV POTASSIUM TO BE TURNED OFF, EDUCATED PT ON DILUTION, PT APPEARS TO TOLERATE IT WELL WITH KVO AND REDUCED RATE; COMPLETED ADMINISTRATION. PT STARTED ON PO PUREE DIET WITH THIN LIQUIDS PER SPOON, APPEARS TO BE TOLERATING WELL, ORAL CARE COMPLETED AFTER MEALS. HR TRENDING UP TO 140-160 THIS EVENING, SCHEDULED LOPRESSOR PER ORDERS. VSS. NO OTHER ACUTE CHANGES NOTED. REPORT GIVEN TO ONCOMING RN.
--- NOTE | 2020-11-21 20:00 | NUR ---
ASSUMED CARE OF PATIENT AT APPROXIMATELY 1900 FROM ELO Kaiser RN. PATIENT ALERT AND ORIENTED TO SELF, AND LOCATION BUT UNABLE TO STATE DATE. PATIENT DENIES NUMBNESS, TINGLING, PAIN AND NAUSEA. PATIENT ANXIOUS. ST PRECAUTIONS IN PLACE; FEEDER; MEDS CRUSHED IN APPLESAUCE; PUREE DIET. PATIENT AFLUTTER 90-110 ON TELE; OXYGEN SATURATION ABOVE 90% ON ROOM AIR. CLINIMIX STARTED PER ORDER. OTHER PIV S/L. Q2H TURNS.
--- NOTE | 2020-11-21 22:45 | NUR ---
CALLED DR. GARCIA TO REPORT PATIENT'S HEART RATE AFLUTTER 120'S [facility]; ORDERS FOR IV CARDZIEM PUSH 10MG NOW AND CARDIZEM GTT TO MAINTAIN HEART RATE BELOW 110; Q6 METOPROLOL D/C'D PER ORDER.
--- NOTE | 2020-11-21 23:33 | NUR ---
IV CARDIZEM GIVEN PER ORDER WITH GOOD RESULTS; HEART RATE AVERAGE DROPPED FROM 120'S TO 101; BP STABLE.
[2020-11-22 04:14] LABS: BASOPHILS ABSOLUTE AUTO 0.05 K/mm3 (0.00-0.23); BASOPHILS PERCENT AUTO 0 % (0-2); EOSINOPHILS ABSOLUTE AUTO 0.11 K/mm3 (0.00-0.68); EOSINOPHILS PERCENT AUTO 1 % (0-6); Hemoglobin 14.6 g/dL (13.5-17.5); IMMATURE GRAN ABSOLUTE AUTO 0.22 K/mm3 (0.00-0.10); IMMATURE GRAN PERCENT AUTO 2 % (0-1); LYMPHOCYTES ABSOLUTE AUTO 1.53 K/mm3 (0.84-5.20); LYMPHOCYTES PERCENT AUTO 12 % (21-46); MONOCYTES ABSOLUTE AUTO 1.67 K/mm3 (0.16-1.47); MONOCYTES PERCENT AUTO 13 % (4-13); Mean Corpuscular HGB 30.9 pg (26.0-34.0); Mean Corpuscular Volume 91 fL (80-100); Mean Platelet Volume 11.4 fL (9.1-12.4); NEUTROPHILS ABSOLUTE AUTO 8.95 K/mm3 (1.96-9.15); NEUTROPHILS PERCENT AUTO 71 % (41-73); Platelet Count 283 K/mm3 (150-400); RDW Coefficient Variation 12.8 % (11.7-14.2); RDW Standard Deviation 42.1 fL (35.1-46.3); Red Blood Cell Count 4.73 M/mm3 (4.30-5.90); White Blood Cell Count 12.53 K/mm3 (4.00-11.30)
[2020-11-22 04:28] LABS: Albumin, Blood 2.5 g/dL (3.4-5.0); Anion Gap 9 mmol/L (6-16); Blood Urea Nitrogen 63 mg/dL (8-24); CO2, Blood 28 mmol/L (21-32); Calcium, Blood 8.4 mg/dL (8.5-10.1); Chloride, Blood 97 mmol/L (98-108); Creatinine, Blood 1.26 mg/dL (0.60-1.20); Glomerular Filtration Rate 59 (60-); Glucose, Blood 297 mg/dL (70-99); Magnesium, Blood 2.2 mg/dL (1.6-2.4); Phosphorus, Blood 3.5 mg/dL (2.5-4.9); Potassium, Blood 2.9 mmol/L (3.5-5.5); Sodium, Blood 134 mmol/L (136-145)
--- NOTE | 2020-11-22 06:33 | NUR ---
PATIENT CONFUSED T/O THE NIGHT; WOKE UP AROUND 2 AM STATING HE WAS UPSET IT WAS 2 AM AND NOT 6 AM; HE WAS ALSO UPSET THAT THE PROGRAM HAD CHANGED ON THE TV AND CALLED HIS SISTER IN [place]; CALLED SON MULTIPLE TIMES T/O THE NIGHT. PATIENT STATED HE WANTED TO LAY ON THE FLOOR AND GO HOME. PATIENT SLEPT LESS THAN THREE HOURS LAST NIGHT. CALLED FREQUENTLY TO FOR SIPS OF WATER; GIVEN VIA SPOON ONE AT A TIME SITTING UP 90 DEGREES.
--- NOTE | 2020-11-22 07:52 | NUR ---
PT ON PHONE WITH SON PAIGE IS SCREAMING AT CON PAIGE, PT IS VERY CONFUSED, SCREAMING AT STAFF THAT HE IS A PRISONER THEN DEMANDS THAT HIS PILLOWS BE REARRANGED. PT AND PILLOWS ARE REARRANGED
--- NOTE | 2020-11-22 18:40 | NUR ---
PT WAS QUITE AGITATED THIS AM WAS HOSTILE WITH STAFF, THERE WAS A DISCUSSION WITH PT ABOUT HIS BEHAVIOR TOWARDS STAFF AND FAMILY WHEN THEY CALL, PT AGREED THAT BEHAVIOR WOULD END, AND HAS BEEN PLEASANT AND COOPERATIVE SINCE. VSS. PT ALERT, COFNUSED, ORIENTED TO SELF AND INTERMITENTLY TO [place]CE. IT WAS NOTED THIS AM THAT PT BECOMES TECYCARDIC WITH AMBULATION, OT EVAL WAS ENDED PER ORDER OF DR HERNANDEZ BECAUSE OF HR THAT REACHED THE 160s PT QUICKLY RECOVERED WHEN RETURNED TO BED WITHOUT INTERVENTION.
[2020-11-23 04:39] LABS: BASOPHILS ABSOLUTE AUTO 0.03 K/mm3 (0.00-0.23); BASOPHILS PERCENT AUTO 0 % (0-2); EOSINOPHILS ABSOLUTE AUTO 0.16 K/mm3 (0.00-0.68); EOSINOPHILS PERCENT AUTO 1 % (0-6); Hematocrit 39.1 % (37.0-53.0); Hemoglobin 13.1 g/dL (13.5-17.5); IMMATURE GRAN ABSOLUTE AUTO 0.32 K/mm3 (0.00-0.10); IMMATURE GRAN PERCENT AUTO 3 % (0-1); LYMPHOCYTES ABSOLUTE AUTO 2.32 K/mm3 (0.84-5.20); LYMPHOCYTES PERCENT AUTO 18 % (21-46); MONOCYTES ABSOLUTE AUTO 1.84 K/mm3 (0.16-1.47); MONOCYTES PERCENT AUTO 14 % (4-13); Mean Corpuscular HGB 30.5 pg (26.0-34.0); Mean Corpuscular HGB Conc 33.5 g/dL (31.5-36.5); Mean Corpuscular Volume 91 fL (80-100); Mean Platelet Volume 11.1 fL (9.1-12.4); NEUTROPHILS ABSOLUTE AUTO 8.15 K/mm3 (1.96-9.15); NEUTROPHILS PERCENT AUTO 64 % (41-73); Platelet Count 290 K/mm3 (150-400); RDW Coefficient Variation 12.8 % (11.7-14.2); RDW Standard Deviation 42.5 fL (35.1-46.3); White Blood Cell Count 12.82 K/mm3 (4.00-11.30)
[2020-11-23 04:56] LABS: Albumin, Blood 2.3 g/dL (3.4-5.0); Anion Gap 7 mmol/L (6-16); Blood Urea Nitrogen 50 mg/dL (8-24); Bun/Creatinine Ratio 40.3 (12.0-20.0); CO2, Blood 29 mmol/L (21-32); Calcium, Blood 8.3 mg/dL (8.5-10.1); Chloride, Blood 102 mmol/L (98-108); Creatinine, Blood 1.24 mg/dL (0.60-1.20); Glomerular Filtration Rate >60 (60-); Glucose, Blood 88 mg/dL (70-99); Magnesium, Blood 2.2 mg/dL (1.6-2.4); Phosphorus, Blood 3.2 mg/dL (2.5-4.9); Potassium, Blood 3.1 mmol/L (3.5-5.5); Sodium, Blood 138 mmol/L (136-145); Troponin I 0.063 ng/mL (0.000-0.040)
--- NOTE | 2020-11-23 06:36 | NUR ---
SHIFT SUMMARY PT A&O W/ FORGETFULNESS. PT EASILY FRUSTRATED & AGGITATED. VSS. MONITOR SHOWING AFLUTTER, HR 110's. SPO2 > 92% ON RA. PT TOLERATING PO INTAKE. NO EVENTS OVER NIGHT.
--- NOTE | 2020-11-23 09:00 | NUR ---
UPDATE: Pt very frusterated and angry about being a feeding. Pt refused to be fed this am stating that he can feed himself, was feeding himself yesterday and that he was told he was doing fine with this yesterday. Showed patient the feeder board with all of his swallow precautions listed and where it said feeder on it. Explained to the patient that it stated he would take too big of bite and not give himself time between bites per ST note, and that this is why he is a feeder. Pt stated that he was going to leave today and not eat unless he fed himself. Insisted ST come and reevaluate him "now". Notified ST of pt request. ST unavailable at this moment. Pt very angry. Physician in to see Pt and Pt voiced his frustrations with physician. Physician and this charge master coordinator reviewed ST note. Agreed that if Pt followed queues, was only allowed small plastic spoon and was supervised we would try to allow him to feed himself. Pt agreed to this. Pt followed all queues while eating and appeared to tolerate his food. PCT took over supervision. Pt appears comfortable and agreeable at this time. Call light in reach. Will continue to assist and monitor.
--- NOTE | 2020-11-23 16:38 | NUR ---
Pt has been alert, oriented to person, place, following directions, and family today. Pain has been controlled with frequent repositioning, egg crate mattress and pillows as well as lidocaine patches which the pt states has really helped this afternoon. He is sitting up in bed at this time, pleasantly conversant. Has had no serious agitation since being allowed to feed himself with supervision in order to prevent aspiration. Pt denies having ever been diagnosed with dementia, nor with any swallowing difficulty or parkinson's. STates he never had difficulty swallowing before this admission. Today he has been eating with good appetite and had a bowel movement. Urine out put clear yellow urine via mcclellan, good output.
[2020-11-24 04:12] LABS: BASOPHILS ABSOLUTE AUTO 0.04 K/mm3 (0.00-0.23); BASOPHILS PERCENT AUTO 0 % (0-2); EOSINOPHILS ABSOLUTE AUTO 0.15 K/mm3 (0.00-0.68); EOSINOPHILS PERCENT AUTO 1 % (0-6); Hematocrit 37.6 % (37.0-53.0); Hemoglobin 12.8 g/dL (13.5-17.5); IMMATURE GRAN ABSOLUTE AUTO 0.29 K/mm3 (0.00-0.10); IMMATURE GRAN PERCENT AUTO 2 % (0-1); LYMPHOCYTES ABSOLUTE AUTO 2.35 K/mm3 (0.84-5.20); LYMPHOCYTES PERCENT AUTO 16 % (21-46); MONOCYTES ABSOLUTE AUTO 1.85 K/mm3 (0.16-1.47); MONOCYTES PERCENT AUTO 13 % (4-13); Mean Corpuscular HGB 31.2 pg (26.0-34.0); Mean Corpuscular Volume 92 fL (80-100); Mean Platelet Volume 10.9 fL (9.1-12.4); NEUTROPHILS ABSOLUTE AUTO 10.02 K/mm3 (1.96-9.15); NEUTROPHILS PERCENT AUTO 68 % (41-73); Platelet Count 327 K/mm3 (150-400); RDW Standard Deviation 42.8 fL (35.1-46.3)
[2020-11-24 04:32] LABS: Albumin, Blood 2.5 g/dL (3.4-5.0); Anion Gap 6 mmol/L (6-16); Blood Urea Nitrogen 40 mg/dL (8-24); Bun/Creatinine Ratio 34.2 (12.0-20.0); CO2, Blood 29 mmol/L (21-32); Calcium, Blood 8.4 mg/dL (8.5-10.1); Chloride, Blood 103 mmol/L (98-108); Creatinine, Blood 1.17 mg/dL (0.60-1.20); Glomerular Filtration Rate >60 (60-); Glucose, Blood 55 mg/dL (70-99); Phosphorus, Blood 3.4 mg/dL (2.5-4.9); Potassium, Blood 3.1 mmol/L (3.5-5.5); Sodium, Blood 138 mmol/L (136-145)
--- NOTE | 2020-11-24 05:02 | NUR ---
SHIFT SUMMARY PT AOX3, CONFUSED AND AGITATED AT TIMES REGARDING SITUATION AND PLAN OF CARE. PT IRRITABLE ABOUT BEING HERE IN HOSPITAL. STATES HE NEEDS TO GO HOME AND THAT HIS SON IS HERE TO HELP HIM IN TOWN FROM [place]. A-FLUTTER VARYING T/O SHIFT 70'S-100'S WITH PVCS. PT IRRITABLE WITH THIS RN, TELLS THIS RN TO LEAVE HIM ALONE AND QUIT PESTERING HIM WHEN THIS RN TO BEDSIDE TO REASSESS DUE TO PVC FREQUENCY INCREASE. C/O SOME DISCOMFORT IN "BOTTOM". REPOSITIONED FOR COMFORT T/O SHIFT. PT GLUCOSE WITH AM LABS 55, AFTER GIVEN SEVERAL SUGAR-FREE PUDDINGS PER REQUEST, PT CBG 88. IV SALINE LOCKED.
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
--- NOTE | 2020-11-24 12:46 | NUR ---
Ate lunch, able to void in urinal independently while lying in bed. Declined OOB to chair. Calm, not talking about leaving the hospital any more.
--- NOTE | 2020-11-24 12:46 | NUR ---
Refusing oral care.
--- NOTE | 2020-11-24 15:42 | NUR ---
Pt has been calm and cooperative this afternoon, apparently resolved to the situation that none of his friends/family members will agree to give him a ride home without a doctor's recommendation that he be discharged. He is voiding, attempting to use the urinal in bed, but refusing to get OOB and refusing to reposition or sit in the chair; he states that his butt is too sore. This shift he has been lying on a bed with egg crate mattress as well as 6 pillows under his entire body to promote comfort. He states lidocaine patches are also helping.
--- NOTE | 2020-11-24 18:19 | NUR ---
pt refusing oral oral care. C/o indigestion, which he states he has sometimes. He was given Maalox for relief.
--- NOTE | 2020-11-24 18:41 | NUR ---
Pt c/o feeling numbness in his left hand and arm; states that he has had a stroke before, and that was one of the symptoms. Bedside neuro check reveals no other deficits: PERRL, various facial expressions and movements are all symmetrical bilaterally, pt denies any other sensory deficits. No lateral tongue deviation, soft palate rises and uvula vibrates symmetrically. ROM of head and neck and symmetrical and WNL. Shoulder shrug symmetrical and equal, hand curing oven tender are equal bilaterally. No changes to ROM of upper or lower extremities. Speech is normal, and pt appears to mentating as he has been all day today. Encouraged pt to continue to monitor and report any changes.
--- NOTE | 2020-11-25 00:39 | NUR ---
PT UPDATE PT SLEEPING RESTFULLY AT THIS TIME, SOFT SNORING, LAYING ON L SIDE PROPPED OFF OF BOTTOM WITH PILLOWS. SATS 97% ON RA.
[2020-11-25 03:53] LABS: BASOPHILS ABSOLUTE AUTO 0.04 K/mm3 (0.00-0.23); BASOPHILS PERCENT AUTO 0 % (0-2); EOSINOPHILS ABSOLUTE AUTO 0.19 K/mm3 (0.00-0.68); EOSINOPHILS PERCENT AUTO 1 % (0-6); Hematocrit 36.1 % (37.0-53.0); Hemoglobin 12.2 g/dL (13.5-17.5); IMMATURE GRAN ABSOLUTE AUTO 0.19 K/mm3 (0.00-0.10); IMMATURE GRAN PERCENT AUTO 1 % (0-1); LYMPHOCYTES ABSOLUTE AUTO 1.81 K/mm3 (0.84-5.20); LYMPHOCYTES PERCENT AUTO 10 % (21-46); MONOCYTES ABSOLUTE AUTO 1.75 K/mm3 (0.16-1.47); MONOCYTES PERCENT AUTO 9 % (4-13); Mean Corpuscular HGB 30.7 pg (26.0-34.0); Mean Corpuscular HGB Conc 33.8 g/dL (31.5-36.5); Mean Corpuscular Volume 91 fL (80-100); Mean Platelet Volume 10.3 fL (9.1-12.4); NEUTROPHILS ABSOLUTE AUTO 14.72 K/mm3 (1.96-9.15); NEUTROPHILS PERCENT AUTO 79 % (41-73); Platelet Count 318 K/mm3 (150-400); RDW Coefficient Variation 12.7 % (11.7-14.2); RDW Standard Deviation 42.3 fL (35.1-46.3); Red Blood Cell Count 3.97 M/mm3 (4.30-5.90)
[2020-11-25 04:16] LABS: Albumin, Blood 2.4 g/dL (3.4-5.0); Anion Gap 5 mmol/L (6-16); Blood Urea Nitrogen 26 mg/dL (8-24); Bun/Creatinine Ratio 23.9 (12.0-20.0); CO2, Blood 29 mmol/L (21-32); Calcium, Blood 8.1 mg/dL (8.5-10.1); Chloride, Blood 101 mmol/L (98-108); Creatinine, Blood 1.09 mg/dL (0.60-1.20); Glomerular Filtration Rate >60 (60-); Glucose, Blood 103 mg/dL (70-99); Phosphorus, Blood 2.4 mg/dL (2.5-4.9); Potassium, Blood 3.7 mmol/L (3.5-5.5); Sodium, Blood 135 mmol/L (136-145)
--- NOTE | 2020-11-25 07:59 | NUR ---
SHIFT SUMMARY PT AOX3. BREATHING EVEN AND UNLABORED. DOES WELL OFF OF CPAP PER PT REQUEST THROUGH NIGHT, SATS 95-96% ON RA. HR 80'S-90'S A FLUTTER. OCCASIONALLY UP TO LOW 100'S-110'S. REPOSITIONED FOR COMFORT T/O SHIFT FREQUENTLY AND PER REQUEST. PT WEAK AT BEDSIDE WITH ASSIST TO USE URINAL, TOLERATES USING URINAL IN BED WELL WITH ASSISTANCE. PT HAD EPISODE OF COUGHING WITH ATTEMPTING TO DRINK SOME DIET PEPSI WITH SPOONFULS. KEPT TO ICE CHIPS FOR REST OF SHIFT. IV SALINE LOCKED. PT WAS COOPERATIVE AND PLEASANT T/O NIGHT. ORAL CARE PROVIDED AROUND [id number]. PT USES MOUTH MOISTURIZER FOR DRY LIPS, COMFORT. IV SALINE LOCKED.
[2020-11-25 16:50] LABS: Source, Urine Clean Catch
[2020-11-25 16:57] LABS: Appearance, Urine Hazy (Clear); Bilirubin, Urine Neg (Neg); Blood, Urine 3+ (Neg); Color, Urine Yellow (P-Yellow); Glucose Qualitative, Urine 2+ (Neg); Ketones, Urine Neg (Neg); Leukocyte Esterase, Urine 3+ (Neg); Nitrite, Urine Pos (Neg); Protein, Urine 2+ (Neg); Specific Gravity, Urine 1.015 (1.003-1.022); Urobilinogen, Urine NORM (Normal)
[2020-11-25 17:45] LABS: White Blood Cells, Urine 50-100 /hpf (0-5)
[2020-11-25 17:46] LABS: Bacteria Many /hpf; Squamous Epithelial Cells Rare /hpf (Few)
--- NOTE | 2020-11-25 17:53 | NUR ---
SBAR REPORT FROM DAKSHA GASCA
--- NOTE | 2020-11-25 18:17 | NUR ---
TRANSFER NOTE PT A&Ox3; COOPERATIVE WITH CARE, AGGITATED AT TIMES. PT 1 PERSON ASSIST WITH WALKER, STOOD THIS AM; UP ON SIDE OF BED WITH ASSIST FOR MEALS. PT REPORTS PAIN TO BUTTOCKS, REPOSITIONED FOR COMOFRT Q2. PT DENIES SOB, NAUSEA AND DIZZINESS T/O SHIFT. PT FEBRILE THIS AFTERNOON, REPORTS CHILLS, MEDICATED WITH TYLENOL LAST TEMP 99.8. OTHER VSS. PT REPORTS EPIGASTRIC PAIN WITH EATING, DR HERNANDEZ ORDERS GI CONSULT FOR DYSPHAGIA, CLARIFIED DIET ORDERS PLANS TO CONTINUE WITH CURRENT DIET ORDERS. STRAIGHT CATH FOR UA PER ORDERS. PT CONT/INCONT WITH URINE. REPLACED MEPILEX TO COCCYX THIS AFTERNOON. NO OTHER ACUTE CHANGES NOTED. REPORT GIVNE TO NO RN ASSUMING CARE OF PT LEFT ROOM AT 1805. PT TRANSFERED TO ROOM 338. SON NBA NOTIFIED.
--- NOTE | 2020-11-25 19:28 | NUR ---
1814 ARRIVED TO MEDICAL UNIT, POST SBAR REPORT FROM ELO AIR CARGO SPECIALIST. ALERT AND ORIENTED TO ALL BUT TIME.
[2020-11-26 05:24] LABS: BASOPHILS ABSOLUTE AUTO 0.08 K/mm3 (0.00-0.23); BASOPHILS PERCENT AUTO 0 % (0-2); EOSINOPHILS PERCENT AUTO 0 % (0-6); Hematocrit 31.9 % (37.0-53.0); Hemoglobin 10.7 g/dL (13.5-17.5); IMMATURE GRAN ABSOLUTE AUTO 0.61 K/mm3 (0.00-0.10); IMMATURE GRAN PERCENT AUTO 2 % (0-1); LYMPHOCYTES PERCENT AUTO 2 % (21-46); MONOCYTES ABSOLUTE AUTO 1.57 K/mm3 (0.16-1.47); MONOCYTES PERCENT AUTO 5 % (4-13); Mean Corpuscular HGB 30.7 pg (26.0-34.0); Mean Corpuscular HGB Conc 33.5 g/dL (31.5-36.5); Mean Corpuscular Volume 92 fL (80-100); Mean Platelet Volume 10.5 fL (9.1-12.4); NEUTROPHILS ABSOLUTE AUTO 27.62 K/mm3 (1.96-9.15); NEUTROPHILS PERCENT AUTO 90 % (41-73); Platelet Count 302 K/mm3 (150-400); RDW Standard Deviation 43.2 fL (35.1-46.3); Red Blood Cell Count 3.48 M/mm3 (4.30-5.90); White Blood Cell Count 30.58 K/mm3 (4.00-11.30)
[2020-11-26 05:49] LABS: Albumin, Blood 2.2 g/dL (3.4-5.0); Anion Gap 7 mmol/L (6-16); Blood Urea Nitrogen 24 mg/dL (8-24); Bun/Creatinine Ratio 20.5 (12.0-20.0); CO2, Blood 26 mmol/L (21-32); Calcium, Blood 8.1 mg/dL (8.5-10.1); Chloride, Blood 101 mmol/L (98-108); Creatinine, Blood 1.17 mg/dL (0.60-1.20); Glomerular Filtration Rate >60 (60-); Glucose, Blood 203 mg/dL (70-99); Phosphorus, Blood 1.9 mg/dL (2.5-4.9); Potassium, Blood 3.8 mmol/L (3.5-5.5); Sodium, Blood 134 mmol/L (136-145)
[2020-11-26 05:55] LABS: BAND PERCENT MAN 2 % (0-8); BASOPHILS PERCENT MAN 0 % (0-2); EOSINOPHILS PERCENT MAN 0 % (0-6); LYMPHOCYTES ABSOLUTE MAN 0.61 K/mm3 (0.84-5.20); LYMPHOCYTES PERCENT MAN 2 % (21-46); MONOCYTES ABSOLUTE MAN 0.91 K/mm3 (0.16-1.47); MONOCYTES PERCENT MAN 3 % (4-13); NEUTROPHILS ABSOLUTE MAN 29.05 K/mm3 (1.96-9.15); SEG NEUTROPHILS PERCENT MAN 93 % (41-73); TOTAL CELLS COUNTED 100
--- NOTE | 2020-11-26 06:01 | NUR ---
AUTO BODY MAN SUMMARY PT A/O X3 WITH FORGETFULNESS. PT IS EASILY AGITATED AND REPITETIVE. MEDICATED ONCE OVERNIGHT FOR MUSCLE PAIN. PT HAD ELEVATED TEMP THIS MORNING OF 99.8 F DESPITE ROOM BEING COOL AND HAVING A FAN THROUGHOUT THE NIGHT. PT DENIES CHILLS, HOWEVER UPPER EXTREMITIES APPEARS TREMBLING. MEDICATE WITH TYLENOL AGAIN THIS MORNING. NPO SINCE MIDNIGHT. Q2 REPOSITIONING PROVIDED. INCONTIENT/CONTIENT TO BLADDER. ATTENDS IN PLACE. BLADDER SCANNED AROUND 0430 THIS MORNING PER ORDER WITH POST VOID RESIDUAL OF 150ML. MEPLEX IN PLACE ON COCCYX. CONTINUES TO BE IN A.FLUTTER IN THE 100'S PER ENGINEERING MATHEMATICIAN. PT DENIES CHEST PAIN. OTHER VITALS ARE STABLE. PT REFUSED TO WEAR CPAP OVERNIGHT. CONTINOUS PULSE OX IN PLACE AND PT HAS BEEN SATTING IN THE 90% AND BETTER. BED ALARM ON, CALL LIGHT WITHIN REACH, WILL CONTINUE TO MONITOR.
[2020-11-26 12:34] LABS: SARS-Cov-2 (COVID-19) PCR, MMC NEGATIVE (NEGATIVE)
--- NOTE | 2020-11-26 16:52 | NUR ---
History, Chart, Medications and Allergies reviewed before start of procedure. Lungs clear T/O to Auscultation. PT REPORTS WEARING CPAP AT HOME WITH 2.5L 02. DENIES SOB AT THIS TIME. PT 97% ON ROOM AIR NOW. Patient confirms NPO status and agrees with scheduled surgery. Pre-Op teaching done. Pt verbalizes understanding.
--- NOTE | 2020-11-26 17:09 | NUR ---
11/26/20 8451 Michel Yusuf History, Chart, Medications and Allergies reviewed before start of procedure. MONITOR INTACT WITH CONTINUOUS PULSE OXIMETRY AND INTERMITTENT BP. EKG MONITORED DURING PROCEDURE. O2 VIA N/C INTACT THROUGHOUT SEDATION/PROCEDURE. Bite Block Placed. See Anesthesia record: DR JAMISON.
--- NOTE | 2020-11-27 03:50 | NUR ---
SHIFT SUMMARY ADMITTED FOR SCOTT/RHABDO/SUNBURN/UTI. FULL CODE. IV ANTIBIOTICS ARE SCHEDULED. TELEMETRY: AFLUTTER @ 105 BPM W/PVC'S. 1 BLOOD CULTURE CAME BACK POSITIVE FOR GRAM POSITIVE COCCI IN CLUSTERS, BUT LAB FELT THAT RESULT WAS MORE LIKELY TO BE THE RESULT OF A SKIN CONTAMINANT. I HAVE GIVEN ATIVAN X2 THIS SHIFT AT THE PT'S REQUEST. UPPER ENDO PERFORMED ON PREVIOUS SHIFT, ESOPHAGITIS FOUND - ONE CLIP PLACED. PHYSICAL THERAPY IS RECOMMENDING PLACEMENT FOR THIS PT. HE DOES CURRENTLY LIVE ALONE IN AN APARTMENT.
[2020-11-27 05:08] LABS: BASOPHILS ABSOLUTE AUTO 0.03 K/mm3 (0.00-0.23); BASOPHILS PERCENT AUTO 0 % (0-2); EOSINOPHILS ABSOLUTE AUTO 0.02 K/mm3 (0.00-0.68); EOSINOPHILS PERCENT AUTO 0 % (0-6); Hematocrit 31.5 % (37.0-53.0); Hemoglobin 10.5 g/dL (13.5-17.5); IMMATURE GRAN ABSOLUTE AUTO 0.19 K/mm3 (0.00-0.10); IMMATURE GRAN PERCENT AUTO 1 % (0-1); LYMPHOCYTES ABSOLUTE AUTO 0.68 K/mm3 (0.84-5.20); LYMPHOCYTES PERCENT AUTO 3 % (21-46); MONOCYTES ABSOLUTE AUTO 1.31 K/mm3 (0.16-1.47); MONOCYTES PERCENT AUTO 7 % (4-13); Mean Corpuscular HGB 30.6 pg (26.0-34.0); Mean Corpuscular HGB Conc 33.3 g/dL (31.5-36.5); Mean Corpuscular Volume 92 fL (80-100); Mean Platelet Volume 10.5 fL (9.1-12.4); NEUTROPHILS ABSOLUTE AUTO 17.85 K/mm3 (1.96-9.15); NEUTROPHILS PERCENT AUTO 89 % (41-73); Platelet Count 277 K/mm3 (150-400); RDW Coefficient Variation 12.9 % (11.7-14.2); RDW Standard Deviation 43.2 fL (35.1-46.3); Red Blood Cell Count 3.43 M/mm3 (4.30-5.90); White Blood Cell Count 20.08 K/mm3 (4.00-11.30)
[2020-11-27 05:36] LABS: Anion Gap 6 mmol/L (6-16); Blood Urea Nitrogen 23 mg/dL (8-24); Bun/Creatinine Ratio 20.4 (12.0-20.0); CO2, Blood 26 mmol/L (21-32); Chloride, Blood 100 mmol/L (98-108); Creatinine, Blood 1.13 mg/dL (0.60-1.20); Glomerular Filtration Rate >60 (60-); Glucose, Blood 205 mg/dL (70-99); Phosphorus, Blood 2.2 mg/dL (2.5-4.9); Potassium, Blood 3.6 mmol/L (3.5-5.5); Sodium, Blood 132 mmol/L (136-145)
--- NOTE | 2020-11-27 18:25 | NUR ---
PT HAS BEEN IRRITABLE, ANGRY AND SOME CONFUSED. MOST TIMES PLAIN MEAN IN WORDS. GOT ANGRY AND SHOOK FIST AT ME TODAY. DID FINALLY GET UP AND WALK WITH PT. H/R UP TO 150'S BUT DID OKAY. THEN WALKED TO BATHROOM AND BACK LATER THIS AFT. NO NEW CONCERNS NOTED TODAY. BED IN LOW POSITION, CALL LITE IN REACH, BED ALARM ON FOR LEIGH
[2020-11-28 04:46] LABS: BASOPHILS ABSOLUTE AUTO 0.02 K/mm3 (0.00-0.23); BASOPHILS PERCENT AUTO 0 % (0-2); EOSINOPHILS ABSOLUTE AUTO 0.06 K/mm3 (0.00-0.68); EOSINOPHILS PERCENT AUTO 1 % (0-6); Hematocrit 31.9 % (37.0-53.0); Hemoglobin 10.8 g/dL (13.5-17.5); IMMATURE GRAN ABSOLUTE AUTO 0.06 K/mm3 (0.00-0.10); IMMATURE GRAN PERCENT AUTO 1 % (0-1); LYMPHOCYTES ABSOLUTE AUTO 0.45 K/mm3 (0.84-5.20); LYMPHOCYTES PERCENT AUTO 4 % (21-46); MONOCYTES ABSOLUTE AUTO 1.13 K/mm3 (0.16-1.47); MONOCYTES PERCENT AUTO 10 % (4-13); Mean Corpuscular HGB 30.7 pg (26.0-34.0); Mean Corpuscular HGB Conc 33.9 g/dL (31.5-36.5); Mean Corpuscular Volume 91 fL (80-100); Mean Platelet Volume 10.5 fL (9.1-12.4); NEUTROPHILS ABSOLUTE AUTO 9.53 K/mm3 (1.96-9.15); NEUTROPHILS PERCENT AUTO 85 % (41-73); Platelet Count 298 K/mm3 (150-400); RDW Coefficient Variation 12.7 % (11.7-14.2); RDW Standard Deviation 41.7 fL (35.1-46.3); Red Blood Cell Count 3.52 M/mm3 (4.30-5.90); White Blood Cell Count 11.25 K/mm3 (4.00-11.30)
--- NOTE | 2020-11-28 04:47 | NUR ---
SHIFT SUMMARY ADMITTED FOR SCOTT/RHABDO/SUNBURN. FULL CODE. PLAN IS FOR PLACEMENT. HE ORIGINALLY LIVES ALONE IN AN APARTMENT. HE IS CONFUSED AT TIMES, FORGETFUL. LABILE MOODS. HE CALLS FREQUENTLY. HE YELLS OUT FOR HELP FOR THE MOST PART, OCCASIONALLY USING HIS CALL BUTTON WHEN REMINDED. TELEMETRY: AFLUTTER W/PVC'S @ 106 BPM. IV ANTIBIOTICS ARE SCHEDULED. DM2, AC GLUCOSE MONITORING. DYSPHAGIA PRECAUTIONS. HX OF DEMENTIA. EGD REVEALED SEVERE ESOPHAGITIS & HIATAL HERNIA, ENDOCLIP PLACED.
[2020-11-28 05:13] LABS: Anion Gap 6 mmol/L (6-16); Blood Urea Nitrogen 20 mg/dL (8-24); Bun/Creatinine Ratio 18.7 (12.0-20.0); CO2, Blood 26 mmol/L (21-32); Calcium, Blood 7.9 mg/dL (8.5-10.1); Chloride, Blood 99 mmol/L (98-108); Creatinine, Blood 1.07 mg/dL (0.60-1.20); Glomerular Filtration Rate >60 (60-); Glucose, Blood 182 mg/dL (70-99); Phosphorus, Blood 1.9 mg/dL (2.5-4.9); Potassium, Blood 3.5 mmol/L (3.5-5.5); Sodium, Blood 131 mmol/L (136-145)
--- NOTE | 2020-11-28 10:00 | NUR ---
1000 LAB CALLED PER ESBL ECOLI IN URINE. CALLED DR HERNANDEZ AT 1000, ORDERS FOLLOWING
--- NOTE | 2020-11-28 15:52 | NUR ---
PT DID WORK WITH [facility]. NO NEW CONCERNS. HE DID BEGIN TO HAVE BM AND WAS BROUGHT BACK TO BED AND SET UPON BEDPAN. BED IN LOW POSITIOIN, CALLLITE IN REACH, BED ALARM ONFOR SAFETY
--- NOTE | 2020-11-28 18:38 | NUR ---
PT IS TALKING BETTER TO STAFF TODAY. NOT ANGRY, STILL USING CALL LITE INAPPROPRIATELY, CALLS 10-15 TIMES REPEATEDLY FOR A SINGLE NEED. HAS BEEN EDUCATED, BUT NOT ACCEPTING. IS NOW IN PRECAUTIONS FOR ESBL URINE. ABX HAVE BEEN CHANGED. NO OTHER CONERNS NOTED. BED IN LOW POSITION, CALL LITE IN REACH, BED ALARM ON FOR SAFETY.
[2020-11-29] MEDS ORDERED: ARTIFICIAL TEA BOTHEYES (03:19)
[2020-11-29] MEDS ORDERED: GLUCOSE4 GM PO (03:21)
--- NOTE | 2020-11-29 04:11 | NUR ---
SHIFT SUMMARY ADMITTED FOR UTI/SCOTT/RHABDO/SUNBURN. FULL CODE. CONTACT PRECAUTIONS FOR ESBL IN URINE. PLAN IS FOR PLACEMENT. PT PREVIOUSLY LIVED ALONE IN AN APARTMENT. HE IS CONFUSED, REPETATIVE, W/LABILE MOODS. HE CALLS OUT FREQUENTLY. IV ANTIBIOTICS ARE SCHEDULED. PHYSICAL & OCCUPATIONAL THERAPIES ARE HELPING WITH THIS PT. UPPER EGD SHOWED SEVERE ESOPHAGITIS, ENDOCLIP PLACED. DYSPHAGIA PRECAUTIONS.
[2020-11-29 05:52] LABS: Anion Gap 6 mmol/L (6-16); Blood Urea Nitrogen 19 mg/dL (8-24); Bun/Creatinine Ratio 19.9 (12.0-20.0); CO2, Blood 25 mmol/L (21-32); Calcium, Blood 8.2 mg/dL (8.5-10.1); Chloride, Blood 103 mmol/L (98-108); Creatinine, Blood 0.96 mg/dL (0.60-1.20); Glomerular Filtration Rate >60 (60-); Glucose, Blood 206 mg/dL (70-99); Phosphorus, Blood 2.2 mg/dL (2.5-4.9); Potassium, Blood 3.7 mmol/L (3.5-5.5); Sodium, Blood 134 mmol/L (136-145)
--- NOTE | 2020-11-29 16:30 | NUR ---
SHIFT SUMMARY PT RESTING QUIETLY WATCHING TV AT START OF SHIFT. INCONTINENT OF URINE; PT CLEANED AND CHANGED. ENCOURAGED PT TO CALL FOR ASSIT WITH URINAL. PT DID SO A COUPLE OF TIMES, BUT WAS ALREADY INCONTINENT AT TIME OF CALLING. DR CHU IN TO SEE PT THIS AM. PT WAS VERY IRRITABLE AND DEMANDING. REFUSING TO WORK WITH PT/OT UNLESS ON HIS TIME FRAME AT A MOMENTS NOTICE. DR CHU ATTEMPTED TO EDU PT ABOUT PROCESS OF THERAPY. PT JUST REFUSED ALL OPTIONS. PT LATER AGREEABLE TO WORK WITH O/T. PT UP TO BTHRM FOR BM AND THEN ABLE TO GET INTO SHOWER WITH EPIDEMIOLOGY INTERNSHIP AND O/T. PER P/T, PT REFUSED TO WORK WITH HIM. PT HAS CALLED A COUPLE OF TIMES THIS AFTERNOON REQUESTING URINAL AND ACTUALLY USED IT REMAINING CONTINENT. MEDICATED WITH TYLENOL, FOR C/O COSEM R/T TO SCRATCHED R EYE, PER HIS REQUEST. USES CALL LT FREQUENTLY WHEN AWAKE, CALLING SEVERAL DOZ TIMES AN HOUR.
--- NOTE | 2020-11-30 04:59 | NUR ---
SHIFT SUMMARY NO ACUTE CHANGES THIS SHIFT. PT RESTING IN BED FOR THE MAJORITY OF THE SHIFT. CONT/INCONT OF URINE. WILL CALL TO USE THE URINAL BUT SOMETIMES IS INCONT BEFORE HE IS ABLE TO USE IT. IS ABLE TO MAKE HIS NEEDS KNOWN AND CALLS OFTEN. MOOD HAS BEEN FAIRLY PLEASANT THIS SHIFT. VSS. RESTING COMFORTABLY IN BED WITH HIS CALL LIGHT IN REACH.
--- NOTE | 2020-11-30 16:36 | NUR ---
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 PT WAS A LITTLE MORE PLEASANT TODAY THAN YESTERDAY, BUT STILL UNWILLING TO WORK WITH NEEDED THERAPY. DR GARCIA CONSULT ORDERED TO HELP DETERMINE PLAN OF CARE. PT UNABLE TO CARE FOR HIMSELF AT HOME CURRENTLY AND UNWILLING TO MAKE EFFORT NEEDED. HAS DONE BETTER TODAY IN CALLING FOR ASSIST WITH URINAL IN ORDER TO REMAIN CONTINENT. MEDICATED FOR C/O COSME AGAIN TODAY. CALL LT IN REACH. ABLE TO MAKE NEEDS KNOWN.
--- NOTE | 2020-12-01 05:22 | NUR ---
SHIFT SUMMARY NO ACUTE CHANGES THIS SHIFT. PT CALLS VERY OFTEN TO USE THE URINAL AND IS WORKING TOWARDS BEING MORE IND WITH USING THE URINAL. THERE ARE TIMES WHEN PT REFUSES TO DO THINGS ON HIS OWN AND CAN LASH OUT AT STAFF. HE HAD A FEW MOMENTS OF IRRITABILITY W/STAFF THIS SHIFT. HE REPORTED THAT HE "IS WORKING ON BEING NICER". VSS. ABLE TO MAKE NEEDS KNOWN. RESTING COMFORTABLY IN BED WITH HIS CALL LIGHT IN REACH.
--- NOTE | 2020-12-01 10:16 | NUR ---
PHYSICIAN NOTIFIED DURING MED PASS c PT HE TOOK A SIP OF COFFEE AND IT DRIPPED OUT OF THE R SIDE OF HIS MOUTH. PT STATED HE WAS HAVING SOME BLURRY VISION. PERRLA. PT ALSO STARTED TO EXPERIENCE SOME SLIGHT APHASIA AND DIFFICULTY FINDING HIS WORDS. SLIGHT R SIDED DROOP NOTICED AND PT UNABLE TO SMILE ON THE LEFT SIDE. VITALS TAKEN AT THIS TIME AND CHARGE NOTIFIED. VSS, PT A&O, ABLE TO MAKE NEEDS KNOWN. PROVIDER WAS NOTIFIED AND ORDERS ARE BEING FOLLOWED THROUGH. PT HAS REMAINED STABLE SINCE ONSET OF THESE SYMPTOMS. SPEECH APPEARS TO BE BETTER.
--- NOTE | 2020-12-01 16:35 | NUR ---
PT IMPROVING SINCE LATEST NEURO CHECK. STILL SOME FACIAL DROOP BUT ABLE TO SWALLOW SMALL SIPS OF THIN LIQUIDS AND FEED HIMSELF c SUPERVISION. FOLLOWS DIRECTION WELL. RIGHT EYE STILL DRIFTS TO THE RIGHT AND EYE LID REMAINS CLOSED FOR A LONGER PERIOD OF TIME.
--- NOTE | 2020-12-01 18:31 | NUR ---
SHIFT SUMMARY NEW ONSET CVA SYMPTOMS NOTED THIS AM, ASPIRIN ADMINISTER AND CT COMPLETED (SEE PREVIOUS NOTES). PT STILL UNABLE TO SMILE ON THE L SIDE, HAS SLURRED SPEECH AND BLURRED VISION. PT DID WELL DURING DINNER, TAKING SMALL SIPS AND BITES c NO SIGNS OF ASPIRATION OR DIFFICULTY. PT DOES HAVE SMALL MOVEMENTS BUT THIS WAS NOTED PRIOR TO CVA LIKE SYMPTOMS. FREQUENT AND SMALL AMOUNTS OF URINATION CONTINUE T/O SHIFT. BLADDER SCAN COMPLETED TO ENSURE NO RETENTION OCCURING. LESS THAN 200 ML NOTED IN BLADDER. ATIVAN GIVEN THIS EVENING DUE TO PT BEING UNABLE TO RELAX AND BECOMING ANXIOUS AND AGITATED AT TIMES. PT IS CURRENTLY RESTING IN BED WITH CALL LIGHT WITHIN REACH. CALLS APPROPRIATELY.
--- NOTE | 2020-12-02 04:03 | NUR ---
INTERNET AND E BUSINESS PROJECT MANAGER SUMMARY HAS BEEN RESTING QUIETLY WITH A FW INTERRUPTIONS - BOTH FOR INCONT OF URINE AND THEREFORE CHANGED, AND FOR NEURO CHECKS. ALERT AND ORIENTED TO QUESTIONS ASKED. RIGHT FACIAL DROOP, AND SLIGHT RIGHT WEAKNESS COMPARED TO THE LEFT. THI REMAINS THE SAME WITH EACH CHECK DONE THIS SHIFT. DENIED LOSS OF FEELING. ANTIBIOTIC ADMINISTERED, TOLERATED PO MEDS - SEE MAR FOR DETAILS. MEPILEX REMAINS ON COCCYX. LIDOCAINE PATCHES APPLIED TO LOWER BACK ORDERED. CALL LIGHT IN REACH.
--- NOTE | 2020-12-02 16:59 | NUR ---
SHIFT SUMMARY PATIENT MEDICATED X2 FOR PAIN, DENIES NAUSEA, AND SHORTNESS OF BREATH. EATING AND DRINKING WELL. UP IN CHAIR FOR BREAKFAST UNTIL AFTER LUNCH TODAY. WALKED WITH FWW AND GAIT BELT IN ROOM APPROXIMATELY 10 FEET. PLEASANT AND COOPERATIVE WITH CARE.
--- NOTE | 2020-12-02 19:14 | NUR ---
AWAKE, IN BED. IVF INFUSING. SMILED AND SPOKE WITH STAFF. CALL LIGHT IN REACH
--- NOTE | 2020-12-03 04:58 | NUR ---
LITHOGRAPHIC CAMERA OPERATOR SUMMARY HAS BEEN AWAKE AT INTERVALS THFOUGHOUT SHIFT WITH MULTIPLE REQUESTS FOR ASSIST WITH THE URINAL, A FEW TIMES WAS INCONT DUE TO URGENCY. IV ANTIBIOTIC INFUSED - SEE MAR FOR DETAILS ON ALL MEDS. REPOSITIONED OFTEN TO KEP OFF HIS BUTTOCK AREA. MEPILEX DRESSING OF AREA INTACT. CALL LIGHT IN REACH. ISOLATOIN PRECAUTIONS MAINAINTE.
--- NOTE | 2020-12-03 10:25 | NUR ---
AT ABOUT 0815 PT GIVEN MORNING MEDICATIONS. PT IS ANGRY AND DIFFICULT AND IS CONSTANTLY COMPLAINING OF BUTTOCK PAIN. PT SAYS HE WANTS TO GO HOME AND . PT IS ALERT AND ORIENTED TO SELF, TIME, AND PLACE. SEEMS TO BE CONFUSED OF SITUATION AND FORGETFUL AT TIMES. FOLLOWS COMMANDS BUT REFUSED THE SUCRALFATE AND NEEDED MUCH CONVINCING TO TAKE TOPOROL. TYLENOL GIVEN FOR THE BACK PAIN WILL CTM.
--- NOTE | 2020-12-03 10:39 | NUR ---
AT ABOUT 1000 PT ASKING FOR LIDOCAINE PATCH. THIS RN IS ROOM AND PT ACTING DIFFERENT FROM THIS MORNING. PT SPEECH IS SLOWER AND SEEMS GARBLED. PT NOT ANGRY AND SEEMS MORE TIRED. PT CONTINUING TO ASK FOR PAIN MEDICATION, ALTHOUGH THIS RN HESITANT TO GIVE. PT IS A/O X3, BUT SEEMS TO RESPOND SLOWER. VSS, AND CBG 215. PT DENIES ANY NEW N/T, FOUNDRY EQUIPMENT MECHANIC STRENGTH AND PUPILS ARE EQUAL. THERE DOES APPEAR TO BE A LEFT DROOP WHEN I ASK PT TO SMILE. DR. CHU MADE AWARE AT ABOUT 1015 OF THIS FINDINGS, NO NEW ORDERS. PER DR. CHU OK TO GIVE OXYCODONE NOW. WILL CTM AND FREQUENTLY ROUND.
--- NOTE | 2020-12-03 16:51 | NUR ---
SUMMARY: VSS, A/O FORGETFUL, BED ALARM ON. PT HAS DONE BETTER THIS AFTERNOON AND EVENING COMPARED TO THIS MORNING. PT IS LESS AGGITATED AND ANGRY. PT REPORTS THAT PAIN IS MANAGED WITH 1 OXYCODONE AND THAT HE IS COMFORTABLE. PT REPORTS LESS OF AN APPETITE AND HAS NOT ATE VERY MUCH TODAY. CBG'S WNL, LANTUS HELD TONIGHT WITH CBG OF 125, PT DENIES SYMPTOMS OF HYPOGLYCEMIA. PT COUGHS AT TIMES AFTER DRINKING, SUCTION SET UP AT PT BEDSIDE FOR ASPIRATION PRECAUTIONS AND ORAL SUCTION COMPLETED PRN. NO ACUTE CONCERNS AT THIS TIME, WILL CTM AND REPORT TO NOC RN.
--- NOTE | 2020-12-03 19:45 | NUR ---
AWAKE. REQUESTED AND RECEIVED REPOSITIONING. ASKED FOR "VALLIUM" WITH HS MEDS. ISOLATOIN PRECAUTIONS MAINTAINED. CALL LIGHT IN REACH
--- NOTE | 2020-12-04 04:34 | NUR ---
GAS FLOW REGULATOR SUMMARY WAS SOMEWHAT ANXIOUS AT SHIFT COMMENCE, REQUESTED "VALIUM" WHICH MD HAD ORDERED FOR HIM FOR HS. MEDICATION SEEMED TO HAVE WORKED HE WAS RESTING QUIETLY FOR A WHILE AFTER TAKING IT. INCONT OF URINE A FEW TIMES AND LINEN CHANGED. AFFECT MORE CHEERFUL THIS SHIFT THAN NOTED 24 HRS PREVIOUS. CURRENTLY RESTING QUIETLY AT THIS TIME. ISOLATION PRECAUTIONS MAINTAINED. CALL LIGHT IN REACH
--- NOTE | 2020-12-04 16:15 | NUR ---
BEHAVIOR NOTE. PT REFUSING VS AND RR CARE. PT CRIES OUT STATING "I NEED OUT OF HERE." PT NON RECEPTIVE TO EDUCATION RE ILLNESS AND PHYSICAL LIMITS. PT USING PROFANITY IN RESPONSE. ATIVAN OFFERED BUT REFUSED. WILL CONTINUE TO MONITOR.
--- NOTE | 2020-12-04 18:52 | NUR ---
PT RESTING IN BED AFTER DINNER AND PM MEDICATION ADMIN. PT REMAINS ORIENTED X3 WITH CONFUSION AND IS LABILE. PT IV LINE IS SL AND WNL. PT STATES "IM SORRY FOR BEING MEAN TODAY, I JUST NEED AN ADVOCATE TO GET OUT OF HERE." PT WAS COMFORTED AND LISTENED TO. MESSAGE LEFT WITH SALES FINANCIAL ANALYST RE PT CONCERNS. PT DID MAKE SEVERAL COMMENTS THIS SHIFT RE NOT WANTING TOO MUCH PAIN MEDS BECAUSE OF HOW IT MAKES HIM FEEL. PAIN TREATED PER EMAR SUCCESSFULLY. THEN PT REQUESTED "SOMETHING HARDER." THIS CARAMEL CUTTER HAND REMINDED THE PATIENT OF HIS REQUESTS EARLIER AND THAT AMINISTERED MEDS WORKED TO RID HIM OF PAIN. WILL PASS THIS ON IN REPORT. BED IN LOW POSITION AND CALL LIGHT WITHIN REACH. STAFF WILL CONTINUE TO MONITOR.
--- NOTE | 2020-12-05 05:31 | NUR ---
BOAT PERSON SUMMARY AWAKE AT INTERVALS, MULTIPLE COMPLAINTS OF NEEDING TO VOID, PAIN AND REQUESTS FOR REPOSITIONING. DEMANDED THAT HE GET HIS VALIUM AROUND 8 PM, VOICED ANNOYANCE WHEN HE GOT IT AROUND 9 PM. WE DISCUSSED WHAT THE MD WANTED, PT WAS IRRITATED WITH IT. PT VOICED HE WOULD TALK WITH THE MD LATER TO DAY. INCONT A FEW TIMES, CHANGED. ISOLATION PRECAUTIONS MAINTAINED. CALL LIGHT IN REACH
--- NOTE | 2020-12-05 18:02 | NUR ---
SUMMARY- PT A/O X3, STATES THE YEAR 2019- PRESIDENT "MY BEST FRIEND AGUSTO"- BED RIDDEN, ROUTINE TURNS AND INCONT CARE. CALLS FOR THE URINAL APPROX Q30MIN TO 1HR. FREQ MINUTES AFTER HE TRIES HE CALLS STAFF BACK INTO THE ROOM. HE FREQ INITIATES DISENTION BY BRINGING UP CONTROVERSIAL SUBJECTS STATING "YOUR A TRUMP LOVER". HE STATES "IF I CURSE GOD DO YOU THINK HE WOULD KILL ME BECAUSE I JUST WANT TO "- OFFERED ENCOURAGEMENT AND REASSURANCE, PT TOLERATING FOOD AND FLUIDS. REFUSED PHYSICAL THERAPY, STATES HE JUST MIGHT WELL LAY IN THE BED AND , BECAUSE THE DR STATES HE WOULD NEVER GO HOME. WORKED SOME WITH OT AND SPEECH.
--- NOTE | 2020-12-06 06:05 | NUR ---
SHIFT SUMMARY- PT. ALERT WITH INTERMITTENT CONFUSION. SLEPT T/O THE NIGHT, NO APPARENT DISTRESS NOTED. CONT/INCONT OF BLADDER, OCCASIONALLY USES URINAL W/ASSISTANCE. ATTENDS IN PLACE. NO C/O PAIN OR DISCOMFORT DURING THE NIGHT. REPOSITIONED FOR COMFORT/PRN. PT. NOTED TO HAVE L SIDED WEAKNESS AND SPEECH DEFICIT. PT. NON-AMBULATORY, VSS. CALL LIGHT WITHIN REACH, SIDE RAILS UPX2, AND BED ALARM ON FOR SAFETY. WILL CONT TO MONITOR.
--- NOTE | 2020-12-06 18:47 | NUR ---
PT CONTUNUES TO HAVE EMOTIONAL OUTBURSTs, LABILE MOOD AND HELPLESSNESS. PT COMFORTED. NO OTHER ACUTE CHANGES NOTED. BED IN LOW POSITION AND STAFF WILL CONTINUE TO MONITOR.
--- NOTE | 2020-12-07 06:18 | NUR ---
SHIFT SUMMARY- PT. HAD NO ACUTE EVENTS OVERNIGHT. SLEPT ON/OFF DURING THE NIGHT. REPOSITIONED FOR COMFORT AND PRN. MEDICATED FOR BOTTOM PAIN THIS AM, PT. REPORTED GOOD RELIEF. CALL LIGHT WITHIN REACH AND SIDE RAILS UPX2. WILL CONT TO MONITOR.
--- NOTE | 2020-12-07 18:05 | NUR ---
PT RINGING HIS CALL GRAY VERY FREQUENTLY, BUT MOSTLY COOPERATIVE WITH NURSING CARE. HE DID REFUSE TO WORK WITH O.T. AND THE THERAPIST DISCHARGED HIM FROM O.T. WILL CONTINUE TO MONITOR AND REPORT TO ONCOMING RN
--- NOTE | 2020-12-08 05:45 | NUR ---
SHIFT SUMMARY PT SLEPT MOST OF THE NIGHT. SPEECH IS SLOW, WORDS ARE MUMBLED. MOOD WAS COOPERATIVE AND PLEASANT. RESIDUAL LEFT SIDED WEAKNESS FROM PREVIOUS CVA. PT IS INCONTINENT, ATTENDS IN PLACE. NO IV OR TELEMETRY. SKIN TO COCCYX IS REDDENED BUT NOT OPEN, COVERED WITH MEPILEX. GROIN AREA IS REDDENED AND SKIN PEELING - TREATED WITH BARRIER CREAM AND NYSTATIN PER EMAR. VSS ON ROOM AIR. CALL LIGHT WITHIN REACH, PT WILL INTERMITTENTLY USE CALL LIGHT OR CALL OUT FOR HELP, ABLE TO MAKE NEEDS KNOWN. WILL CONTINUE TO MONITOR.
--- NOTE | 2020-12-08 11:23 | NUR ---
hospitalist call to confirm that mcclellan had been previously removed and wrote orders to ensure mcclellan it not still there
--- NOTE | 2020-12-09 00:18 | NUR ---
PHONE CALL TO DOCTOR 2014: PLACED PHONE CALL TO PIERCE GUTIERREZ, PT IS REQUESTING STOOL SOFTENER. HE IS ON NARCOTICS, NO BOWEL CARE SCHEDULED PRN. GIVEN PRUNE JUICE. PIERCE GUTIERREZ ORDERED SENNA PLUS, ONE TAB BID. FIRST DOSE NOW.
--- NOTE | 2020-12-09 05:30 | NUR ---
SHIFT SUMMARY NO ACUTE CHANGES. HINA'S VS REMAIN STABLE, NO TELE, NO IV. HINA REQUESTED BOWEL CARE AND A DIGITAL STIMULATION TO PROMOTE BM. RN ATTEMPTED TO REMOVE HARDENED FECAL MATTER DIGITALLY BUT FOUND SOFT BM, NO IMPACTION. HINA STATED HE WAS "TIRED FROM BEARING DOWN" TRYING TO PASS A STOOL. RN ENCOURAGED PT TO REST, ADMINISTERED PRUNE JUICE AND PRN SENNA PER PT REQUEST AND EMAR. CONTINUED TO REPOSITION PT TO PROMOTE SKIN INTEGRITY. BARRIER CREAM APPLIED TO REDDENED AREA ON GROIN AND COCCYX. EGG CRATE MATTRESS IN PLACE. HINA IS ABLE TO MAKE HIS NEEDS KNOWN, AND WILL USE CALL LIGHT. CONTINENT/INCONTINENT WITH ATTENDS IN PLACE. WILL CONTINUE TO MONITOR.
--- NOTE | 2020-12-09 14:40 | NUR ---
Initial palliative care consult: Requested to see pt as he is requesting hospice and wants to go home. Chart reviewed. Pt is currently awaiting guardianship. CM notes and MD progress notes reviewed. [facility] on [facility]. Michel voices frustration over wanting to not be at the hospital. He states he is depressed that his body isn't working like it should. He also states that he has been here "a long time." He appears at times to be mostly oriented but has intermittent confusion and poor memory. He shows this poem writer that he can move his left leg, and grossly move his left arm but doesn't have fine motor skills in his left hand. He reports being . He states that he would like to go home and that he has money to pay for caregivers. When we discussed his very deconditioned state, and the option of a facility placement he states that he is agreeable to that. Reviewed with him that [facility] is working with the [facility] in coming up with a safe discharge plan. He states his friend Maged "Is angry with me over a taoist difference." He tells me has no family but nursing reports that he talked to his sister in [place] earlier this morning. In reviewing notes, it appears that pt also has a son in [place] who has been contacted by staff. He tells this poem writer that he is a and is 100% service connected. He states that he doesn't want to talk about his time in the service. 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 He becomes tearful when he talks about being a photoengraver apprentice. He reports neuropathy to bilat feet, "They feel like blocks." He reports that he doesn't sleep well at night. He c/o constipation and "No energy to push it out." He states that his nurse hasn't given him anything for his constipation. Reviewed the EMAR and reassured him that nursing has medicated him for constipation. Encouraged fluids and offered water and pruce juice. Pt declined at this time. It appears that he was on medications for the neuropathy and for depression in the past. There is a question of medication compliance at home. Those medications to treat the depression and neuropathy were stopped when he was admitted. He appears depressed during our conversation. He would likely benefit from having his neuropathy pain and depression addressed. Reviewed EMAR and pt has medications for sleep, anxiety and pain. Spoke with nursing to offer medications to treat his discomfort so he can get some restorative sleep. Emotional support given. Allowed pt to voice his frustrations and fears. Encouraged him to work with therapy so that he can attempt to regain some of his strength. PC to continue to visit for therapeutic conversations and to assist with advanced care planning as needed.
--- NOTE | 2020-12-09 18:25 | NUR ---
alert, no iv, rm air, mood swings, forgetful, spent an hour talking to palilative care, medicated for bowel care today but still no bm yet, call light in reach this am used excessivly, currently lying in bed with eyes closed, responds to verbal stimuli, unable to stand or get out of bed on own, will continue to monitor and treat until share bsr with noc nurse and pt, remains in isolation
--- NOTE | 2020-12-10 06:38 | NUR ---
75 year old [place] with rhabdo and admission with acute sunburn was found down & admitted to Hospital awaiting place for safe DC plan. Psych consult Guardianship letter in chart with appointement pending. PT has acute on chronic pain, medicated with oxy 5 mg & valium at HS with helpful effect. PT hollers out versus using callbell. Not agressive this shift. on modified diet with thin liquids via sippy cup. Needs safe DC plan lacking support.
--- NOTE | 2020-12-10 11:52 | NUR ---
F/u Palliative Care visit and case conferences with , RN, Cogeneration Operator, MARIA amd pt's sister Krista Wright [phone] in [place]. Earlier this am application development liaison contacted me to say that pt's sister had reached out to [facility] requesting return call and information re: pt being d/c'd on hospice. I contacted sister to verify how we could help. She is calling her brother on his phone everyday but not always able to get thru. She was also able to get some report from Michel's nurses over the weekend. I answered her questions regarding hospice services but also let her know I was unsure if her brother met hospice criteria as I had not met him yet, spoken to the or his nurse. Krista states her brother is fearful that he will here in the hospital when talking to her on the phone. I tried to update sister as much as possible in regard to the issues pt was admitted with and current status. Most of his admitting dx have been resolved or are stable at this time. a whole, pt's baseline level of health appears to have been very poor even if he does not have one specific terminal dx. In speaking with his RN, who had pt much earlier in his admission, she sees a big decline in his strength, mobility and mentation since she last cared for him 6-8 days ago. I assissted RN with placing pt on a bedpan. He could only assist with his right upper extremity and was a total assist of two for bedpan use, change of attends and repositioning to turn and prop on left side. Pt is rambling and only rarely is his verbalizations understood or make sense. Case conferenced with pt's MARIA and caring for pt today about my conversation with pt's sister and the clinical rehab liaison. Plan at this point is to have [facility] screen for acceptance. If pt is less somnolent and more clear I would like to discuss his wishes and code status with him and if he is not able to do that plan to discuss goals of care and code status with his sister. She appears to be the only family member reaching out to pt or to us at this time. I am not finding any documented AD or POA information in our EMR and the [facility] medical records has responded to our request for AD records saying, there are no records at the [facility] either. At this time, pt is not able to feed himself and even with assist has had very little PO food/fluid intake per his RN. He appears profoundly weak, confused, delirious, incontinent of urine and stool, although he was able to say he felt like he needed to have a bowel movement and had a small amount of stool in the bedpan when placed on the bedpan. He appears to require a lift for a safe transfer to a recliner chair. At the time of my assessment his PPS score is 20%. If pt continues without significant intake and lack of activity I would expect that percentage to drop. Plan f/u with Ethics Chair, MARIA Guzman, nursing and sister.
--- NOTE | 2020-12-10 14:23 | NUR ---
CODE STATUS discussion and change of CODE to DNR - Pt cont to request hospice services of his nurse and sister. I called sister to give her another update after my assessment. We discussed Code status, goals of care and her willingness to be a surrogate decision maker for Michel. Sister, Krista Wright, ([phone]) is willing to assist with medical decisions. Per her brother's stated wishes for hospice, she asks that we make her brother a DNR, after we reviewed his current code status. I contacted with update on my assessment and conversation with Krista. VO obtained and entered for DNR and RN updated also on new orders. Plan to reassess status and s/s in am and continue conversations related to care planning with sister and CM//RN and pt if he is able to participate.
--- NOTE | 2020-12-10 17:32 | NUR ---
SHIFT SUMMARY PATIENT MEDICATED X1 FOR PAIN, DENIES NAUSEA BUT STATES HE "DOESN'T FEEL WELL", RESPIRATIONS ELEVATED THIS AFTERNOON AND OXYGEN SATURATION IN HIGH EIGHTES. 2L/NC APPLIED. PATIENT NOTABLY WEAKER TODAY, DESIRING TO SLEEP AND DECLINING MEALS EVEN WHEN ECOURAGED TO EAT. ABLE TO COMMUNICATE NEEDS BUT ALSO MAKES NONSENSICAL STATEMENTS. PATIENT STATED SEVERAL TIMES THAT HE DESIRED TO GO TO [facility] AND THAT HIS SISTER WAS AWARE. PATIENT HAVING INCREASED COUGHING EPISODES EVEN WHEN SITIING AT 90 DEGRESS AND HAVING THIN LIQUIDS BY SPOON. PATIENT REPOSITIONED WITH TWO MAX ASSIST. PALLIATIVE CARE CONSULTED WITH FAMILY AND CARE TEAM, CODE STATUS CHANGED TO DNR.
--- NOTE | 2020-12-11 06:38 | NUR ---
SHIFT SUMMARY PT IS A 75 Y/O MALE, ADMITTED FOR [facility]. HE IS A&O X SELF, BEDREST, 2P TURN. PT IS VERY CONFUSED AND ANXIOUS AND YELLS OUT OFTEN WHILE AWAKE. PT IS ON ASPIRATION PRECAUTIONS, AND COUGHED AFTER DRINKING ANY WATER. NO S/S OF PAIN, NAUSEA OR SOB. PT SLEPT WELL THROUGH THE NIGHT. NO ACUTE CHANGES IN PT CONDITION NOTED DURING THE NIGHT. WILL CONTINUE TO MONITOR AND TREAT PER EMAR UNTIL HAND OFF TO DAY SHIFT RN.
--- NOTE | 2020-12-11 09:45 | NUR ---
Summary of Case Conferences with pt, RN, , MARIA and pt's sister Krista Wright, who resides in [place] [phone] before and after visit to pt. Pt is more awake and conversant today. He is in a right sidelying position with HOB elevated. Michel confirms that he wants hospice care but when I explored if he understood what hospice means, it is clear that he does not. He asked his RN for hospice care too. Upon entering his room, he had an empty ensure carton in his right hand. His face, gown, blankets and chest were covered with ensure.He had attempted to drink from it but he was not able to hold it in his mouth and it was draining out the right side of his mouth, as well as coughing noted with signs of aspiration. at bedside also. While I was cleaning up pt's face and chest I spoke to him about hospice. It is not clear to him that hospice is EOL care, he states he just knows it is better care. He cannot comprehend that his oral intake is going into his lungs and why that would be a problem. I made several attempts to explain aspiration pneumonia and choking due to dysphagia. Pt is more interactive today but still unable to connect his current left sided flaccidity, nonambulatory status and need for total care as reasons why he cannot return home alone. Pt does not have family locally and the only NOK who has returned calls and participated in his care is his sister, Krista. I updated Krista by phone on current status and concerns for aspiration, continued/worsening weakness and pt's limited ability to participate in a meaningful way with any rehab attempt. I offered, per my conversation with , a repeat CT of head and option to pursue ST/swallow eval and g-tube if needed. Krista is clear that if pt understood that he would be prolonging living in a facility by pursuing work up and tx for CVA/dysphagia that he would not want that. She requests that we transition him to comfort care today and pursue hospice placement where he will receive care to keep him safe and comfortable at this time. This was reported to , DAKSHA and MARIA. VO for comfort care obtained and entered. I will revisit later today to check on s/s. I will ask our Volunteer to sit with Michel later today also since he does not have any friends/family visiting. Pt did not report pain to me and I did not note nonverbal indicators of pain or distress during my visit. Pt wanted more oatmeal off his breakfast tray and I assisted with very small bites that he had difficulty closing his mouth on spoon with but was able to swallow. Plan to update sister on pt's status and progress with d/c planning tomorrow am. She expressed gratitude for those caring for her brother.
--- NOTE | 2020-12-11 17:13 | NUR ---
SUMMARY PT RESTING QUIETLY IN BED, MADE COMFORT CARE TODAY, PT MED PER EMAR FOR COMFORT, BED BATH GIVEN, IDALMIS WELL, NO ACUTE CHANGES, WILL CONT TO MONITOR
--- NOTE | 2020-12-11 18:23 | NUR ---
F/U [facility] comfort care visit and case conference with pt's RN, who reports that pt is much more comfortable and at ease t/o the day. Pt is currently sleeping, (appears) very peaceful when I stepped into the room. I did not disturb him. t/c to update pt's sister, Krista, in [place]. She was grateful for the call and update. She had heard from pt's son finally and had given him an update on status and plan of care. Plan to try to call sister from pt's phone tomorrow so they can talk again. She was unable to reach him by his cell phone today.
--- NOTE | 2020-12-11 20:16 | NUR ---
RESTING QUIETLY, NO NOTED S/S ACUTE DISTRESS
--- NOTE | 2020-12-11 21:45 | NUR ---
RESTING QUIETLY. CALL LIGHT IN REACH
--- NOTE | 2020-12-11 22:42 | NUR ---
RESTING QUIETLY, COMFORT MEASURES MAINAINED.
--- NOTE | 2020-12-12 00:32 | NUR ---
REPOSITIONED AND LINEN CHANGED DUE TO FECAL AND URINE INCONT. CALL LIGHT IN REACH
--- NOTE | 2020-12-12 03:39 | NUR ---
JUNIOR MARKETING ASSOCIATE SUMMARY PT ON COMFORT MEASURES OF YESTERDAY. HAS BEEN RESTING QUIETLY WITH FEW INTERRUPTIONS, SAID INTERRUPTIONS WERE FOR PAIN MEDS AND REPOSITIONING, WELL CHANGING FOR INCONTINENCE. ISOLATION PRECAUTIONS MAINTAINED. CALL LIGHT IN REACH. SEE MAR FOR MEDICATIONS ADMINISTERED.
--- NOTE | 2020-12-12 06:30 | NUR ---
HAS BEEN REPOSITIONED FOR COMFORT - SEE MAR FOR DETAILS OF WHEN PAIN MEDS GIVEN
--- NOTE | 2020-12-12 06:31 | NUR ---
RESTING QUIETLY. CALL LIGHT IN REACH
--- NOTE | 2020-12-12 06:32 | NUR ---
REPOSITINED, INCONT, CHANGED. CALL LIGHT IN REACH
--- NOTE | 2020-12-12 09:00 | NUR ---
[facility] comfort care visit - Update on events and s/s t/o noc received from pt's RN, who also cared for him yesterday. Pt with breakfast tray in front of him. Staff assisting with meals. He appears calm and comfortable. Will recheck later today. RN reports he woke anxious but this was relieved with medications per eMAR prn. Will update sister today also as planned.
--- NOTE | 2020-12-12 14:12 | NUR ---
Pal Care visit attempt and update to sister Krista Wright [phone] Attempted visit to assist pt in calling his sister with his cell phone. He was sound asleep and did not wake to voice after lunch. I did not wake him. Case conferenced with MARIA Guevara, who received workd from [facility] that they are not able to accept pt to their hospice unit. Paola will make referral to local [place] for placement with [facility] to follow also. [facility] has already screened and approved for services per Leesa Garcia material liaison. T/C to Krista with update regarding current s/s management and all of above. I gave her [facility] contact info and Ang direct number for communication prior to d/c from hospital. I will also ask [facility] RN to call sister with an update later this week if pt remains admitted here. I instructed Krista that I would anticipate d/c prior to the weekend as soon as appropriate placement secured. Pt will not need a same day hospice admit at [place], in my opinion. His s/s appear to be well managed with the current PO/SL medications ordered currently as long as they are given regularly per eMAR orders.
[2020-12-12 18:00] LABS: SARS-Cov-2 (COVID-19) PCR, MMC NEGATIVE (NEGATIVE)
--- NOTE | 2020-12-12 18:24 | NUR ---
SUMMARY PT REMAINS ON COMFORT CARE, RESTING QUIETLY, MED PER EMAR FOR PAIN AND ANXIETY, ASKS FOR WATER FREQUENTLY, OCC COUGHS WITH WATER, PT DENIES SOB, PER CARE MANAGEMENT AND [facility], PT TO DISCHARGE TO [facility] TOMORROW AROUND 10:30 AM TO GO ON HOSPICE, NO ACUTE CHANGES, WILL CONTINUE TO MONITOR
--- NOTE | 2020-12-12 23:51 | NUR ---
COMFORT CARE 2139: PT RESTING IN BED, REPOSITIONED TO SIDE LYING LEFT. GIVEN SIPS OF WATER. MOISTURIZER APPLIED TO LIPS. PT DENIES PAIN AND IS IN NO APPARENT DISTRESS. PT DECLINES MEDS AT THIS TIME. BED IN LOWEST POSITION, CALL LIGHT WITHIN REACH.
--- NOTE | 2020-12-12 23:55 | NUR ---
COMFORT CARE 2340: PT LYING IN BED, REPOSITIONED TO FLOATING SUPINE. DENIES PAIN. ASSISTED TO DRINK SIPS OF WATER. ATTENDS CHANGED AND LOTION APPLIED TO REDDENED SKIN. PT LAUGHED AND CRACKED A FEW JOKES WITH STAFF. BED IN LOWEST POSITION, CALL LIGHT WITHIN REACH.
--- NOTE | 2020-12-13 02:11 | NUR ---
COMFORT CARE PT SIDE LYING IN BED ON RIGHT SIDE, NO C/O PAIN OR DISCOMFORT. PT SMILES AT STAFF. WATER OFFERED. BED IN LOWEST POSITION, CALL LIGHT WITHIN REACH. WILL CONTINUE TO MONITOR.
--- NOTE | 2020-12-13 02:12 | NUR ---
COMFORT CARE PT IS SLEEPING, AUDIBLY SNORING. NO APPARENT DISTRESS OR DISCOMFORT. WILL CONTINUE TO MONITOR.
--- NOTE | 2020-12-13 04:56 | NUR ---
SHIFT SUMMARY PT ON COMFORT CARE. HE DECLINED HIS MEDICATIONS THIS SHIFT. COMFORT CARE INCLUDING ADEQUATE HYDRATION, REPOSITIONING, MOISTURIZER TO LIPS, CHANGING ATTENDS. WILL CONTINUE TO MONITOR.
--- NOTE | 2020-12-13 05:28 | NUR ---
COMFORT CARE ATTENDS CHANGED, PERICARE PROVIDED - BACK RUB AND BABY POWDER TO BACK. PT ASSISTED TO HOLD HIS CUP AND DRINK WATER. MOISTURIZER APPLIED TO LIPS. FLOATED SUPINE WITH PILLOWS FOR SUPPORT. HINA IS ABLE TO CALL APPROPRIATELY, CALL LIGHT WITHIN REACH.
[2020-12-13] MEDS ORDERED: Ativan1 MG PO (08:06)
[2020-12-13] MEDS ORDERED: SENNA LAXATIVE8.6 MG PO (08:06)
[2020-12-13] MEDS ORDERED: MIRT15ST PO (08:06)
[2020-12-13] MEDS ORDERED: NYSTATIN15 GM TOP (08:07)
[2020-12-13] MEDS ORDERED: MORP20L SL (08:07)
--- NOTE | 2020-12-13 09:37 | NUR ---
PT REPORTS PAIN THIS AM, MEDS PROVIDED PER EMAR. PT ABLE TO MAKE NEEDS KNOWN. ORAL CARE COMPLETED. FLUIDS PROVIDED, PT REFUSED BREAKFAST AND SCHEDULED MORNING MEDS.
--- NOTE | 2020-12-13 11:17 | NUR ---
DISCHARGE SUMMARY PT DISCHARGED @ APPROX 1115 VIA GURNEY BY [facility]. [facility] GOING TO [facility], REPORT CALLED TO DAKSHA BLAKE @ 1030. ALL BELONGINGS PLACED IN BAGS AND PROVIDED TO EMT. ALL PAPERWORK ALSO PROVIDED TO EMT TO GIVE TO SNF. NO IV ACCESS TO BE REMOVED PRIOR TO DC. HARD SCRIPTS FAXED BY DAKSHA GASCACENTRIFUGAL CASTING MACHINE TENDER.
== END 2020-12-13 11:11 | DRG 922 ==
LOC: ER 23:01 → MEDS 11-17 00:41 → PCU 11-17 00:41 → MEDS 11-17 01:48 → ICUW 11-18 16:47 → PCU 11-19 11:27 → MEDS 11-25 18:10 → ENPENDDIS 12-13 08:21 → MEDS 12-13 11:11
PROVIDERS: Family Medicine; Internal Medicine; Student in an Organized Health Care Education/Training Program; ADMIT Internal Medicine
PROC: 0DB58ZX Excision of Esophagus, Via Natural or Artificial Opening Endoscopic, Diagnostic (ICD-10-PCS; 2020-11-26)
PROC: 0DB68ZX Excision of Stomach, Via Natural or Artificial Opening Endoscopic, Diagnostic (ICD-10-PCS; 2020-11-26)
PROC: 0W3P8ZZ Control Bleeding in Gastrointestinal Tract, Via Natural or Artificial Opening Endoscopic (ICD-10-PCS; principal; 2020-11-26 17:30)
DX: T67.01XA Heatstroke and sunstroke, initial encounter (principal); I50.21 Acute systolic (congestive) heart failure; K20.91 Esophagitis, unspecified with bleeding; N17.9 Acute kidney failure, unspecified; M62.82 Rhabdomyolysis; Z51.5 Encounter for palliative care; Z66 Do not resuscitate; G45.9 Transient cerebral ischemic attack, unspecified; E87.1 Hypo-osmolality and hyponatremia; I13.0 Hypertensive heart and chronic kidney disease with heart failure and stage 1 through stage 4 chronic kidney disease, or unspecified chronic kidney disease; I48.92 Unspecified atrial flutter; N39.0 Urinary tract infection, site not specified; Z16.12 Extended spectrum beta lactamase (ESBL) resistance; Z20.822 Contact with and (suspected) exposure to COVID-19; F43.10 Post-traumatic stress disorder, unspecified; N40.0 Benign prostatic hyperplasia without lower urinary tract symptoms; E78.5 Hyperlipidemia, unspecified; I25.10 Atherosclerotic heart disease of native coronary artery without angina pectoris; E11.65 Type 2 diabetes mellitus with hyperglycemia; E86.0 Dehydration; N18.30 Chronic kidney disease, stage 3 unspecified; E11.22 Type 2 diabetes mellitus with diabetic chronic kidney disease; J44.9 Chronic obstructive pulmonary disease, unspecified; F03.90 Unspecified dementia, unspecified severity, without behavioral disturbance, psychotic disturbance, mood disturbance, and anxiety; R13.10 Dysphagia, unspecified; E87.6 Hypokalemia; Z91.14 Patient's other noncompliance with medication regimen; R00.0 Tachycardia, unspecified; K44.9 Diaphragmatic hernia without obstruction or gangrene; R41.82 Altered mental status, unspecified; B96.20 Unspecified Escherichia coli [E. coli] as the cause of diseases classified elsewhere; K29.70 Gastritis, unspecified, without bleeding; E83.39 Other disorders of phosphorus metabolism; K21.9 Gastro-esophageal reflux disease without esophagitis; D63.1 Anemia in chronic kidney disease; E11.42 Type 2 diabetes mellitus with diabetic polyneuropathy; Z88.8 Allergy status to other drugs, medicaments and biological substances; Z79.4 Long term (current) use of insulin; Z91.030 Bee allergy status; Z79.82 Long term (current) use of aspirin; Z79.02 Long term (current) use of antithrombotics/antiplatelets; Z79.899 Other long term (current) drug therapy; Z86.73 Personal history of transient ischemic attack (TIA), and cerebral infarction without residual deficits; Z87.891 Personal history of nicotine dependence; Z95.5 Presence of coronary angioplasty implant and graft; X58.XXXA Exposure to other specified factors, initial encounter
CPT/HCPCS: 36415; 36600; 70450; 71045; 71046; 80048; 80053; 80069; 81001; 82550; 82553; 82803; 82941; 82947; 83036; 83605; 83735; 83880; 84100; 84132; 84145; 84484; 85025; 87040; 87077; 87086; 87186; 88305; 88312; 88342; 92526; 92610; 93306; 94640; 94660; 94667; 94668; 94760; 94762; 96125-GN; 96360; 97110; 97116; 97163; 97165; 97530; 97535; 99285-25; A9270; C9113; J0360; J0696; J1650; J1815; J1940; J2060; J2185; J2405; J2704; J3480; J7030; J7050; J7060; J7120; U0004